=== PATIENT | male | born 1970 | race Caucasian/White ===

== ENCOUNTER 2017-10-18 19:18 | Observation (INO) | payer BC, OTHER ==
[~2017-10-18] VITALS: Ht 170.2 cm; Wt 96.7 kg
[~2017-10-18 19:18] MED LIST: ASPI81TA28 PO; ATOR10TA82 PO; CLC6 PO; CRG25 PO; DIPH-437 PO; FAMO20TA11 PO; FLUO10CA48 PO; FURO40TA3 PO; METF-383 PO; NITR0.4S UT; POTA10CA28 PO; PREN1TAB29 PO; SITA100T3 PO; TRAM-10 PO
[2017-10-18] MEDS ORDERED: ASPIRIN 81 MG CHEW PO STA (19:34)
[2017-10-18 19:52] LABS: BASO % 0.4 %; BASO ABS # 0.03 K/uL (0-0.2); EOS % 2.1 %; EOS ABS # 0.17 K/uL (0-0.5); HEMATOCRIT 45.4 % (42-52); HEMOGLOBIN 15.9 g/dL (14.0-18.0); IG# 0.01 K/uL (0.00-0.02); LYMPH % 23.6 %; LYMPH ABS # 1.92 K/uL (1.2-3.4); MEAN CELL VOLUME 83.8 fL (80-100); MEAN CORPUSCULAR HEMOGLOBIN 29.3 pg (25-34); MEAN PLATELET VOLUME 10.2 fL (7.4-10.4); MONO % 9.5 %; MONO ABS # 0.77 K/uL (0.11-0.59); NEUT % 64.3 %; NEUT ABS # 5.22 K/uL (1.4-6.5); PLATELET COUNT 248 K/uL (130-400); RED CELL DISTRIBUTION WIDTH SD 38.8 fL (36.4-46.3); WHITE BLOOD COUNT 8.12 K/uL (4.8-10.8)
[2017-10-18] MEDS ORDERED: ATOR-24 PO (20:12)
[2017-10-18] MEDS ORDERED: CARV25TA2 PO (20:14)
[2017-10-18] MEDS ORDERED: FLUO20CA35 PO (20:15)
[2017-10-18] MEDS ORDERED: INSU1.2I SC (20:23)
[2017-10-18 20:24] LABS: BLOOD UREA NITROGEN 14 mg/dl (7-18); CALCIUM 8.6 mg/dl (8.5-10.1); CARBON DIOXIDE 27 mmol/L (21-32); CREATININE 1.31 mg/dl (0.60-1.40); GLUCOSE 242 mg/dl (70-99); LIPASE 148 U/L (73-393); POTASSIUM 4.1 mmol/L (3.5-5.1); SODIUM 135 mmol/L (136-145)
[2017-10-18] MEDS ORDERED: LISI-789 PO (20:25)
[2017-10-18] MEDS ORDERED: ISOS30TA3 PO (20:25)
--- NOTE | 2017-10-18 20:31 | DIAGNOSTIC IMAGING REPORT ---
CHEST 2 VIEWS ROUTINE CLINICAL HISTORY: Chest pain. COMPARISON STUDY: Chest CT June 10, 2015. FINDINGS: Lung volumes are normal. There is no pneumothorax or pleural effusion. Pulmonary vascularity is normal. There is no consolidation to suggest pneumonia. There are median sternotomy wires and clips from bypass grafting. Opacity along the left heart border likely reflects epicardial fat pad or atelectasis. IMPRESSION: No acute cardiopulmonary findings. Electronically signed by: Kwasi Forrest M.D. 10/18/2017 8:29 PM Dictated Date/Time: 10/18/2017 8:28 PM
[2017-10-18 20:55] LABS: PTT PATIENT 23.4 SECONDS (21.0-31.0)
[2017-10-18 21:00] LABS: INFLUENZA B ANTIGEN Neg for Influ B (NEG)
--- NOTE | 2017-10-18 21:17 | EMERGENCY ROOM VISIT NOTE ---
History Report prepared by Kole: Jayla Chin Under the Supervision of: Dr. Bashir Bradley M.D. First contact with patient: 19:24 Chief Complaint: RESPIRATORY PROBLEMS Stated Complaint: TROUBLE BREATHING, PAIN L CHEST History of Present Illness The patient is a 47 year old male who presents to the Emergency Room with complaints of worsening respiratory problems starting 3 days ago. The patient states that he has had constant chest pain that he describes as a pressure with it. He reports that it is worse with a deep breath and feels similar to when he had pericarditis in the past. He states that the pain is worse when lying flat and better when leaning forward. The patient currently rates his pain as a 5/10 in severity pain is located substernally and over his left chest.. The patient complains of feeling heart palpitations earlier today and a cough with phlegm production. The patient denies recent travel, taking hormone pills, and hemoptysis. The patient notes a history of a quadruple bypass in March of 2015 and CHF. He notes he takes a baby Aspiring in the morning and states that he did take it this morning. Source of History: patient Onset: 3 days ago Position: other (global) Symptom Intensity: 5/10 Quality: pressure, other (respiratory problem) Timing: worsening Modifying Factors (Worsening): other (lying flat) Modifying Factors (Relieving): other (leaning forward) Associated Symptoms: + cough, + chest pain Note: The patient complains of heart palpitations. The patient denies hemoptysis. Review of Systems See HPI for pertinent positives and negatives. A total of ten systems were reviewed and were otherwise negative. Past Medical & Surgical Medical Problems: (1) CAD (coronary artery disease) (2) Diabetes (3) MS (myocardial infarction) (4) Quadruple heart bypass Family History Diabetes mellitus Heart disease Hypertension Lung disease Social History Smoking Status: Never Smoker Alcohol Use: none Drug Use: none Marital Status: Housing Status: lives with family Occupation Status: employed Current/Historical Medications Scheduled Aspirin (Aspirin Ec), 81 MG PO DAILY Atorvastatin (Lipitor), 40 MG PO DAILY Carvedilol (Coreg), 25 MG PO BID Famotidine (Pepcid), 20 MG PO BID Fluoxetine (Prozac), 10 MG PO DAILY Insulin Glargine (Toujeo Solostar), 75 UNITS SC HS Isosorbide Mononitrate Ext Rel (Imdur Ext Rel), 30 MG PO QAM Lisinopril (Zestril), 2.5 MG PO QPM Nitroglycerin (Nitrostat), 0.4 MG UT PRN Scheduled PRN Acetaminophen/Diphenhydramine (Tylenol Pm), 1 TAB PO HS PRN for Sleep Furosemide (Lasix), 40 MG PO 3XWK PRN for WATER RETENTION Potassium Chloride (Micro-K Ext Rel), 10 MEQ PO 3XWK PRN for PRN Tramadol (Ultram), 50-100 MG PO UD PRN for Pain Allergies Coded Allergies: Omeprazole (Verified Allergy, Intermediate, SOB, FACIAL REDNESS, 10/18/17) Lansoprazole (Unverified Allergy, Mild, 10/18/17) Cephalexin (Verified Adverse Reaction, Intermediate, SEVERE NAUSEA & VOMITING, 10/18/17) Physical Exam Vital Signs Date Time Temp Pulse Resp B/P (MAP) Pulse Ox O2 Delivery O2 Flow Rate FiO2 10/18/17 21:18 92 18 130/78 96 Room Air 10/18/17 20:23 87 10/18/17 19:51 94 Room Air 10/18/17 19:51 94 Room Air 10/18/17 19:22 37.0 94 18 113/71 96 Room Air Physical Exam Physical Exam GENERAL: He is oriented to person, place, and time. He appears well-developed and well-nourished. He does not appear distressed. HENT: Exam performed. Head: Normocephalic and atraumatic. Right Ear: External ear normal. No mastoid tenderness. Left Ear: External ear normal. No mastoid tenderness. Mouth/Throat: The oropharynx is clear and moist. No trismus in the jaw. No dental abscesses or uvula swelling. No oropharyngeal exudate or tonsillar abscesses. EYES: Conjunctivae and EOM are normal. Pupils are equal, round, and reactive to light. Right eye exhibits no discharge. Left eye exhibits no discharge. No scleral icterus. NECK: Normal range of motion. Neck supple. No JVD present. No spinous process tenderness present. No carotid bruit present. No rigidity. No tracheal deviation and normal range of motion present. No Brudzinski's sign and no Kernig 's sign noted. CV: Normal rate, regular rhythm, normal heart sounds and intact distal pulses. There is no peripheral edema. Palpable radial pulses bue. PULM/CHEST: Effort normal and breath sounds normal. No respiratory distress. No stridor. He has no wheezes. He has no rales. Chest Wall: He exhibits no tenderness. ABD: The abdomen is soft. Bowel sounds are normal. He has no distension. No mass is present. There is no tenderness. There is no rebound, no guarding, no Holley's sign and no tenderness at McBurney's point. Rovsig negative MUSC/SKEL: Normal range of motion. There is no peripheral edema, tenderness or deformity. Amputated left lower extremity. LYMPH: No cervical adenopathy. NEURO: He is alert and oriented to person, place, and time. He has normal strength. No cranial nerve deficit or sensory deficit. Coordination and gait normal. GCS eye subscore is 4. GCS verbal subscore is 5. GCS motor subscore is 6. Cerebellar tests wnl. SKIN: Skin is warm and dry. He is not diaphoretic. Scars over his anterior chest where the cabbage was performed that look well healed and clean. PSYCH: He has a normal mood and affect. His behavior is normal. Judgment and thought content normal. Medical Decision & Procedures ER Provider Diagnostic Interpretation: Radiology results as stated below per my review and radiologist interpretation: CHEST 2 VIEWS ROUTINE CLINICAL HISTORY: Chest pain. COMPARISON STUDY: Chest CT June 10, 2015. FINDINGS: Lung volumes are normal. There is no pneumothorax or pleural effusion. Pulmonary vascularity is normal. There is no consolidation to suggest pneumonia. There are median sternotomy wires and clips from bypass grafting. Opacity along the left heart border likely reflects epicardial fat pad or atelectasis. IMPRESSION: No acute cardiopulmonary findings. Electronically signed by: Kwasi Forrest M.D. 10/18/2017 8:29 PM Dictated Date/Time: 10/18/2017 8:28 PM Laboratory Results 10/18/17 19:40 Red Blood Count 5.42, Mean Corpuscular Volume 83.8, Mean Corpuscular Hemoglobin 29.3, Mean Corpuscular Hemoglobin Concent 35.0, Mean Platelet Volume 10.2, Neutrophils (%) (Auto) 64.3, Lymphocytes (%) (Auto) 23.6, Monocytes (%) (Auto) 9.5, Eosinophils (%) (Auto) 2.1, Basophils (%) (Auto) 0.4, Neutrophils # (Auto) 5.22, Lymphocytes # (Auto) 1.92, Monocytes # (Auto) 0.77, Eosinophils # (Auto) 0.17, Basophils # (Auto) 0.03 10/18/17 19:40 Test 10/18/17 19:40 10/18/17 20:33 White Blood Count 8.12 K/uL (4.8-10.8) Red Blood Count 5.42 M/uL (4.7-6.1) Hemoglobin 15.9 g/dL (14.0-18.0) Hematocrit 45.4 % (42-52) Mean Corpuscular Volume 83.8 fL (80-100) Mean Corpuscular Hemoglobin 29.3 pg (25-34) Mean Corpuscular Hemoglobin Concent 35.0 g/dl (32-36) Platelet Count 248 K/uL (130-400) Mean Platelet Volume 10.2 fL (7.4-10.4) Neutrophils (%) (Auto) 64.3 % Lymphocytes (%) (Auto) 23.6 % Monocytes (%) (Auto) 9.5 % Eosinophils (%) (Auto) 2.1 % Basophils (%) (Auto) 0.4 % Neutrophils # (Auto) 5.22 K/uL (1.4-6.5) Lymphocytes # (Auto) 1.92 K/uL (1.2-3.4) Monocytes # (Auto) 0.77 K/uL (0.11-0.59) Eosinophils # (Auto) 0.17 K/uL (0-0.5) Basophils # (Auto) 0.03 K/uL (0-0.2) RDW Standard Deviation 38.8 fL (36.4-46.3) RDW Coefficient of Variation 13.0 % (11.5-14.5) Immature Granulocyte % (Auto) 0.1 % Immature Granulocyte # (Auto) 0.01 K/uL (0.00-0.02) Anion Gap 7.0 mmol/L (3-11) Est Creatinine Clear Calc Drug Dose 77.3 ml/min Estimated GFR () 73.6 Estimated GFR (Non- 63.5 BUN/Creatinine Ratio 11.0 (10-20) Calcium Level 8.6 mg/dl (8.5-10.1) Troponin I < 0.015 ng/ml (0-0.045) Pro-B-Type Natriuretic Peptide 22 pg/ml (0-450) Lipase 148 U/L (73-393) Chemistry Specimen Hemolysis Prothrombin Time 10.7 SECONDS (9.0-12.0) Prothromb Time International Ratio 1.0 (0.9-1.1) Activated Partial Thromboplast Time 23.4 SECONDS (21.0-31.0) Partial Thromboplastin Ratio 0.9 Influenza Type A Antigen Neg for Influ A (NEG) Influenza Type B Antigen Neg for Influ B (NEG) Laboratory results reviewed by me Medications Administered Medications (Trade) Dose Ordered Sig/Jeremy Route Start Time Stop Time Status Last Admin Dose Admin Aspirin (Aspirin Chew) 324 mg NOW STAT PO 10/18/17 19:34 10/18/17 19:36 DC 10/18/17 19:54 324 MG ECG Per My Interpretation Indication: chest pain Rate (beats per minute): 91 Rhythm: sinus rhythm Findings: T-wave inversion (V1, V2, V3, V4, V5 ), other (GA, QRS, and QT-c within normal limits, no ST eleveations or depressions) Comparison ECG Date: May 2015, REPEAT Change: May 2015: When compared to previous, T wave inversions in V1-V3 are stable. New T wave inversions in V4 and V5. REPEAT: No change from EKG done today at 1932 besides rate of 89. ED Course 1930: The patient was evaluated in room C4. A complete history and physical exam was performed. EMR reviewed. The patient was admitted to [facility] in May 2015 for chest pain when it was discovered that he had pericardial effusion. It was thought that the patient had pericarditis status post CABG. Echocardiogram on June 11 showed small circumferential pericardial effusion. There was no evidence of cardiac tamponade. EF within normal limits. LV within normal limits. Grade 2 diastolic dysfunction. The patient has DMR stated that this CABG had been done on April 05, 2015 and diagnosed with pericarditis developed post op. He was treated with colchicine 0.6 mg O BID. EMR was further reviewed and the patient had a STEMI in 2010 that was complicated by V-fib arrest. 1931: EKG was performed. It showed sinus rhythm at a rate of 91. GA, QRS, and QT -c are within normal limits. T wave inversions were found in V1, V2, V3, V4, and V5. No ST elevations or depressions. When compared to previous in May 2015, T wave inversion in V1-V3 are stable. New T wave inversions in V4 and V5. 1933: Ordered Aspirin 324 mg PO. 1946: Repeat EKG was performed. No change from EKG done at 1931 besides the rate is now 89. 1951: Bedside Ultrasound was performed be ok. The patient shows pericardial effusion in the apical and parasternal long views. No evidence of cardiac tamponade. Subxiphoid view was inconclusive for pericardial effusion due to bowel gas. 2106: Chest x-ray and lab work within normal limits. Discussed the patient's case with Dr. Zenaida Bowen Hospitalist. The patient will be evaluated for further treatment and disposition. Medical Decision 1930: The patient was evaluated in room C4. A complete history and physical exam was performed. EMR reviewed. The patient was admitted to [facility] in May 2015 for chest pain when it was discovered that he had pericardial effusion. It was thought that the patient had pericarditis status post CABG. Echocardiogram on June 11 showed small circumferential pericardial effusion. There was no evidence of cardiac tamponade. EF within normal limits. LV within normal limits. Grade 2 diastolic dysfunction. The patient has DMR stated that this CABG had been done on April 05, 2015 and diagnosed with pericarditis developed post op. He was treated with colchicine 0.6 mg O BID. EMR was further reviewed and the patient had a STEMI in 2010 that was complicated by V-fib arrest. 1931: EKG was performed. It showed sinus rhythm at a rate of 91. GA, QRS, and QT -c are within normal limits. T wave inversions were found in V1, V2, V3, V4, and V5. No ST elevations or depressions. When compared to previous in May 2015, T wave inversion in V1-V3 are stable. New T wave inversions in V4 and V5. 1933: Ordered Aspirin 324 mg PO. 1946: Repeat EKG was performed. No change from EKG done at 193 besides the rate is now 89. 1951: Bedside Ultrasound was performed be ok. The patient shows pericardial effusion in the apical and parasternal long views. No evidence of cardiac tamponade. Subxiphoid view was inconclusive for pericardial effusion due to bowel gas. 2106: Chest x-ray and lab work within normal limits. Discussed the patient's case with Dr. Zenaida Goins. The patient will be evaluated for further treatment and disposition. Medication Reconcilliation Current Medication List: was personally reviewed by me Blood Pressure Screening Patient's blood pressure: Normal blood pressure Blood pressure disposition: Did not require urgent referral Will be further monitored by the hospitalist. Consults Time Called: 2102 Consulting Physician: Dr. Zenaida Goins Returned Call: 2106 Discussed the patient's case with Dr. Zenaida Goins. The patient will be evaluated for further treatment and disposition. Impression Primary Impression: Chest pain, unspecified Additional Impression: Pericardial effusion Scribe Attestation The scribe's documentation has been prepared under my direction and personally reviewed by me in its entirety. I confirm that the note above accurately reflects all work, treatment, procedures, and medical decision making performed by me. The chart was completed utilizing [employer] Speech voice recognition software. Grammatical errors, random word insertions, pronoun errors, and incomplete sentences are an occasional consequence of this system due to software limitations, ambient noise, and hardware issues. Any formal questions or concerns about the content, text, or information contained within the body of this dictation should be directly addressed to the physician for clarification. Departure Information Dispostion Being Evaluated By Hospitalist Referrals Larry Bartlett PA-C (PCP) Patient Instructions My [facility] Problem Qualifiers
[2017-10-18] MEDS ORDERED: ACETAMINOPHEN 325 MG TAB PO PRN (22:15)
[2017-10-18] MEDS ORDERED: POLYETHYLENE (MIRALAX) 17 GM PACK PO PRN (22:15)
[2017-10-18] MEDS ORDERED: ONDANSETRON INJ 2 MG/ML 2 ML VIAL IV PRN (22:15)
[2017-10-18] MEDS ORDERED: TRAMADOL HCL 50 MG TAB PO PRN (22:30)
[2017-10-18] MEDS ORDERED: DEXTROSE 50% 50 ML SYR IV PRN (22:30)
[2017-10-18] MEDS ORDERED: NITROGLYCERIN 0.4 MG SL PER TAB CHARGE UT SCH (22:30)
[2017-10-18] MEDS ORDERED: GLUCOSE 40% GEL 15 GM TUBE PO PRN (22:30)
[2017-10-18] MEDS ORDERED: GLUCOSE 10 TABS/TUBE PO PRN (22:30)
[2017-10-18] MEDS ORDERED: GLUCAGON FOR INJ 1 MG VIAL SQ PRN (22:30)
[2017-10-18 22:40] VITALS: BP 128/77; PULSE 86; TEMP 36.6; O2SAT 96; BMI 34.3
[2017-10-18] MEDS ORDERED: INSULIN GLARGINE SOLOSTAR 100 UNITS/ML 3 ML PEN SC SCH (23:00)
--- NOTE | 2017-10-18 23:01 | History and Physical ---
History & Physical Date & Time of Service: Oct 18, 2017 at 22:40 Chief Complaint: Chest Pain, Unspecified. Pericardial Effusion Primary Care Physician: Larry Bartlett PA-C History of Present Illness Source: patient, family, clinic records, hospital records Patient is a 47 yo male who presents to the hospital by encouragement from his , for complaints of left sided chest pain that he admits has been occurring intermittently for a week. The patient reports the pain has progressed today, and became more severe which is why he agreed to go to the hospital. He reports the chest pain is on the left side, below his left breast, and not painful to palpation. He reports worsening of the pain with deep breathing. He has also had a non-productive cough for the past week and was around his who tested positive for flu a week ago. The patient states he has been sleeping upright in a recliner the last few nights as he feels uncomfortable laying flat. He also states for the past 1 month he has had a decline in his energy, his exercise tolerance, and has been getting fatigued very easily with even minimal activity. He has also had worsening ESCUDERO over this time. He reports being sleepy all of the time. He also experienced a sensation today where he had palpitations and felt his heart was skipping a beat. He states he became worried today because his symptoms reminded him of the anginal symptoms he had in 2014 prior to undergoing CABG. Patient reports compliance with medications and denies any recent changes to medications. 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 Family History Diabetes mellitus Heart disease Hypertension Lung disease Social History Smoking Status: Never Smoker Smokeless Tobacco Use: Yes Alcohol Use: none Drug Use: none Marital Status: Housing status: lives with family Occupational Status: disabled Immunizations History of Influenza Vaccine: Unknown History of Tetanus Vaccine?: Unknown Multi-Drug Resistant Organisms History of MDRO: Yes Allergies Coded Allergies: Omeprazole (Verified Allergy, Intermediate, SOB, FACIAL REDNESS, 10/18/17) Lansoprazole (Unverified Allergy, Mild, 10/18/17) Cephalexin (Verified Adverse Reaction, Intermediate, SEVERE NAUSEA & VOMITING, 10/18/17) Home Medications Scheduled Aspirin (Aspirin Ec), 81 MG PO DAILY Atorvastatin (Lipitor), 40 MG PO DAILY Carvedilol (Coreg), 25 MG PO BID Famotidine (Pepcid), 20 MG PO BID Fluoxetine (Prozac), 10 MG PO DAILY Insulin Glargine (Toujeo Solostar), 75 UNITS SC HS Isosorbide Mononitrate Ext Rel (Imdur Ext Rel), 30 MG PO QAM Lisinopril (Zestril), 2.5 MG PO QPM Nitroglycerin (Nitrostat), 0.4 MG UT PRN Scheduled PRN Acetaminophen/Diphenhydramine (Tylenol Pm), 1 TAB PO HS PRN for Sleep Furosemide (Lasix), 40 MG PO 3XWK PRN for WATER RETENTION Potassium Chloride (Micro-K Ext Rel), 10 MEQ PO 3XWK PRN for PRN Tramadol (Ultram), 50-100 MG PO UD PRN for Pain Review of Systems Constitutional: + fatigue, No fever, No chills, No sweats, No weight loss Eyes: No worsening of vision, No eye pain, No diplopia ENT: No hearing loss, No nasal symptoms, No sore throat, No trouble swallowing Respiratory: + cough, + shortness of breath, + dyspnea on exertion, No sputum, No wheezing Cardiovascular: + chest pain, + orthopnea, + palpitations, No edema Abdomen: No pain, No nausea, No vomiting, No diarrhea, No constipation Musculoskeletal: No joint pain, No muscle pain, No swelling Genitourinary - Male: No hematuria, No dysuria, No urinary frequency, No urinary urgency Neurologic: No paralysis, No weakness, No numbness/tingling, No vertigo Psychiatric: No depression symptoms, No anxiety, No insomnia Endocrine: + fatigue, No excessive thirst, No excessive urination Hematologic / Lymphatic: No abnormal bleeding/bruising, No clotting problems, No night sweats Integumentary: No rash, No itch, No new/changing skin lesions Physical Exam Vital Signs Date Time Temp Pulse Resp B/P (MAP) Pulse Ox O2 Delivery O2 Flow Rate FiO2 10/18/17 22:23 79 20 128/78 95 10/18/17 21:18 92 18 130/78 96 Room Air 10/18/17 20:23 87 10/18/17 19:51 94 Room Air 10/18/17 19:51 94 Room Air 10/18/17 19:22 37.0 94 18 113/71 96 Room Air General Appearance: WD/WN, no apparent distress Head: normocephalic, atraumatic Eyes: PERRL, EOMI, sclerae normal (conjunctivae clear) ENT: hearing grossly normal Neck: supple, no adenopathy, no JVD, no carotid bruits, trachea midline Respiratory/Chest: chest non-tender, lungs clear, normal breath sounds, no respiratory distress, no accessory muscle use Cardiovascular: regular rate, rhythm, no edema, no gallop, no JVD, no murmur Abdomen/GI: normal bowel sounds, non tender, soft, no organomegaly (no hepatosplenomegaly) Back: normal inspection Extremities/Musculoskelatal: no calf tenderness, no pedal edema, + pertinent finding (left BKA) Neurologic/Psych: no motor/sensory deficits, alert, normal mood/affect, oriented x 3 Skin: normal color, warm/dry, no rash Diagnostics Laboratory Results Results Past 24 Hours Test 10/18/17 19:40 10/18/17 20:33 10/18/17 22:16 10/18/17 22:18 Range/Units White Blood Count 8.12 4.8-10.8 K/uL Red Blood Count 5.42 4.7-6.1 M/uL Hemoglobin 15.9 14.0-18.0 g/dL Hematocrit 45.4 42-52 % Mean Corpuscular Volume 83.8 80-100 fL Mean Corpuscular Hemoglobin 29.3 25-34 pg Mean Corpuscular Hemoglobin Concent 35.0 32-36 g/dl Platelet Count 248 130-400 K/uL Mean Platelet Volume 10.2 7.4-10.4 fL Neutrophils (%) (Auto) 64.3 % Lymphocytes (%) (Auto) 23.6 % Monocytes (%) (Auto) 9.5 % Eosinophils (%) (Auto) 2.1 % Basophils (%) (Auto) 0.4 % Neutrophils # (Auto) 5.22 1.4-6.5 K/uL Lymphocytes # (Auto) 1.92 1.2-3.4 K/uL Monocytes # (Auto) 0.77 0.11-0.59 K/uL Eosinophils # (Auto) 0.17 0-0.5 K/uL Basophils # (Auto) 0.03 0-0.2 K/uL RDW Standard Deviation 38.8 36.4-46.3 fL RDW Coefficient of Variation 13.0 11.5-14.5 % Immature Granulocyte % (Auto) 0.1 % Immature Granulocyte # (Auto) 0.01 0.00-0.02 K/uL Sodium Level 135 136-145 mmol/L Potassium Level 4.1 3.5-5.1 mmol/L Chloride Level 101 98-107 mmol/L Carbon Dioxide Level 27 21-32 mmol/L Anion Gap 7.0 3-11 mmol/L Blood Urea Nitrogen 14 7-18 mg/dl Creatinine 1.31 0.60-1.40 mg/dl Est Creatinine Clear Calc Drug Dose 77.3 ml/min Estimated GFR () 73.6 Estimated GFR (Non- 63.5 BUN/Creatinine Ratio 11.0 10-20 Random Glucose 242 70-99 mg/dl Calcium Level 8.6 8.5-10.1 mg/dl Troponin I < 0.015 0-0.045 ng/ml Pro-B-Type Natriuretic Peptide 22 0-450 pg/ml Lipase 148 73-393 U/L Chemistry Specimen Hemolysis Prothrombin Time 10.7 9.0-12.0 SECONDS Prothromb Time International Ratio 1.0 0.9-1.1 Activated Partial Thromboplast Time 23.4 21.0-31.0 SECONDS Partial Thromboplastin Ratio 0.9 Influenza Type A Antigen Neg for Influ A NEG Influenza Type B Antigen Neg for Influ B NEG Impression Assessment and Plan CHEST PAIN: -appears more pleuritic by description, however patient has significant CAD history and will be admitted to tele for further workup -first troponin negative, repeat x2 -TTE -Cardiology consulted -D-dimer is less than 500, making PE less likely -EKG: compared to prior, there are t wave inversions now more pronounced in V4 and V5, compared to 2 years ago when only in V1-V3 -ESR and CRP elevated -did have a previous pericarditis following his CABG in 2014 which resolved following treatment -influenza negative -CXR negative -ER attending performed bedside US and believed there was pericardial effusion without tamponade; this was discussed with Cardiology and the patient will undergo a formal TTE in the AM, will hold off on starting NSAID + colchicine until diagnosis is made -previous TTE from 2016 done as an outpatient showed EF 52%, trivial anterior loculated pericardial effusion CAD: -prior history of anterior TX s/p stent in 2009, and a CABG x4 in 2014 -last TTE was in 2015, EF 52% -repeat TTE -continue ASA, Statin, Coreg, and Imdur DM TYPE II: -check HbA1c -on Basal insulin, added correction scale as well -BSG AC and HS HTN: -stable -continue home meds HYPERLIPIDEMIA: -continue statin DEPRESSION: -continue fluoxetine VTE Prophylaxis VTE Risk Assessment Done? Y/N: Yes Risk Level: Moderate
[2017-10-18 23:53] VITALS: BP 122/81; PULSE 81; TEMP 36.3; O2SAT 96
[2017-10-19 00:10] LABS: INFLUENZA A PCR Neg for Influ A (NEG); INFLUENZA B PCR Neg for Influ B (NEG)
[2017-10-19] MEDS ORDERED: IV FLUIDS COMPLETED PRN (00:15)
[2017-10-19 03:48] VITALS: BP 124/80; PULSE 82; TEMP 37; O2SAT 96
[2017-10-19 04:42] LABS: CHOLESTEROL 103 mg/dl (0-200); LDL CHOLESTEROL CALCULATED 52 mg/dl
[2017-10-19 06:09] LABS: HEMATOCRIT 43.7 % (42-52); HEMOGLOBIN 15.2 g/dL (14.0-18.0); MEAN CELL VOLUME 84.5 fL (80-100); MEAN CORPUSCULAR HEMOGLOBIN 29.4 pg (25-34); MEAN CORPUSCULAR HGB CONC 34.8 g/dl (32-36); MEAN PLATELET VOLUME 9.9 fL (7.4-10.4); PLATELET COUNT 210 K/uL (130-400); RED CELL DISTRIBUTION WIDTH CV 13.1 % (11.5-14.5); WHITE BLOOD COUNT 7.51 K/uL (4.8-10.8)
[2017-10-19 06:43] LABS: CALCIUM 8.8 mg/dl (8.5-10.1); POTASSIUM 3.8 mmol/L (3.5-5.1)
[2017-10-19] MEDS: INSULIN ASPART 100 UNITS/ML 3 ML PEN SC SCH ×4 (07:00→21:00)
[2017-10-19 07:21] LABS: HEMOGLOBIN A1C 8.9 % (4.5-5.6)
[2017-10-19 07:57] VITALS: BP 144/95; PULSE 74; TEMP 37.1; O2SAT 96
[2017-10-19] MEDS: ASPIRIN 81 MG ECTAB PO SCH (09:02)
[2017-10-19] MEDS: CARVEDILOL 25 MG TAB PO SCH ×2 (09:02→21:16)
[2017-10-19] MEDS: ATORVASTATIN 20 MG TAB PO SCH (09:02)
[2017-10-19] MEDS: FLUOXETINE HCL 20 MG CAP PO SCH (09:03)
[2017-10-19] MEDS: FAMOTIDINE 20 MG TAB PO SCH ×2 (09:04→21:16)
[2017-10-19] MEDS: ISOSORBIDE MONONITRATE 30 MG TABCR PO SCH (09:05)
[2017-10-19] MEDS: ENOXAPARIN 40 MG/0.4 ML SYR SC SCH (09:06)
--- NOTE | 2017-10-19 09:11 | ECHOCARDIOGRAM REPORT ---
*NOTICE TO RECEIVING [employer] [facility] This information is strictly Confidential and protected under [place] law. [place] law prohibits you from making any further disclosure of this information unless further disclosure is expressly permitted by the written consent of the person to whom it pertains or is authorized by law. A general authorization for the release of medical or other information is not sufficient for this purpose. Hospital accepts no responsibility if the information is made available to any other person, INCLUDING THE PATIENT. Interpretation Summary * Name: KRISTEL SHRESTHA Study Date: 10/19/2017 06:35 AM BP: 124/80 mmHg * Patient Location: C.2E\S\E211\S\1 HR: 69 * : 1970 (M/d/yyyy) Gender: Male Height: 67 in * Age: 47 yrs Ethnicity: [place] Weight: 223 lb * Ordering Physician: Mercedes Estevez * Referring Physician: Self, Referred * Performed By: Kathryn Chauhan RDCS * * Reason For Study: PERICARDITIS * BSA: 2.1 m2 * -- Conclusions -- * Normal LV chamber size with moderate concentric LVH. * Normal LV systolic function with abnormal septal wall motion consistent with postoperative state, otherwise, normal. EF 55-60%. * Grade II diastolic dysfunction. * No significant valvular pathology. Procedure Details * A contrast injection of Definity was performed to improve assessment of LV function. * Contrast was injected into an intravenous site in the left arm. * One vial of Definity ultrasound contrast was diluted in normal saline to a total volume of 10 ml. A total of '1' ml of solution was administered during imaging. * Lot # [id number] of Definity utilized for procedure. * Expiration date 1 OCT 12. Left Ventricle * The left ventricle is normal in size. * There is moderate concentric left ventricular hypertrophy. * Ejection Fraction = 55-60%. * Left ventricular systolic function is normal. * Septal motion is consistent with post-operative state. Right Ventricle * The right ventricular cavity size is normal (basal dimension <4.2 cm in right ventricular apical 4-chamber view). * The right ventricular systolic function is normal as assessed by tricuspid annular plane systolic excursion (TAPSE) (normal >1.5 cm). Atria * The left atrial size is normal. * Right atrial size is normal. * No ASD detected; PFO is not assessed. Mitral Valve * The mitral valve is normal in structure and function. Tricuspid Valve * The tricuspid valve is normal in structure and function. Aortic Valve * The aortic valve is normal in structure and function. Pulmonic Valve * The pulmonary valve is not well seen, but the Doppler examination is normal without significant regurgitation or stenosis. Great Vessels * The aortic root is normal size. Pericardium/Pleural * There is no pericardial effusion. Left Ventricular Diastolic Function * Diastolic dysfunction, Grade II (pseudonormalization pattern). MMode 2D Measurements and Calculations IVSd 1.7 cm IVSs 2.0 cm LVIDd 3.9 cm LVIDs 2.6 cm LVPWd 1.5 cm LVPWs 2.1 cm IVS/LVPW 1.1 FS 33.1 % EDV(Teich) 67.4 ml ESV(Teich) 25.4 ml EF(Teich) 62.3 % EDV(cubed) 61.0 ml ESV(cubed) 18.3 ml EF(cubed) 70.0 % % IVS thick 19.7 % % LVPW thick 39.7 % LV mass(C)d 250.0 grams LV mass(C)dI 118.1 grams/m\S\2 LV mass(C)s 240.2 grams LV mass(C)sI 113.4 grams/m\S\2 SV(Teich) 42.0 ml SI(Teich) 19.8 ml/m\S\2 SV(cubed) 42.7 ml SI(cubed) 20.2 ml/m\S\2 Ao root diam 3.2 cm Ao root area 8.3 cm\S\2 LA dimension 3.4 cm LA/Ao 1.0 LVAd ap4 23.6 cm\S\2 LVLd ap4 7.3 cm EDV(MOD-sp4) 61.1 ml EDV(sp4-el) 64.4 ml LVAs ap4 14.1 cm\S\2 LVLs ap4 6.7 cm ESV(MOD-sp4) 25.3 ml ESV(sp4-el) 25.3 ml EF(MOD-sp4) 58.6 % EF(sp4-el) 60.7 % LVAd ap2 26.7 cm\S\2 LVLd ap2 8.2 cm EDV(MOD-sp2) 70.2 ml EDV(sp2-el) 74.2 ml LVAs ap2 13.8 cm\S\2 LVLs ap2 7.1 cm ESV(MOD-sp2) 24.2 ml ESV(sp2-el) 23.0 ml EF(MOD-sp2) 65.6 % EF(sp2-el) 69.0 % LVLd %diff 10.4 % EDV(MOD-bp) 69.3 ml LVLs %diff 5.4 % ESV(MOD-bp) 24.5 ml EF(MOD-bp) 64.7 % SV(MOD-sp4) 35.8 ml SI(MOD-sp4) 16.9 ml/m\S\2 SV(MOD-sp2) 46.0 ml SI(MOD-sp2) 21.7 ml/m\S\2 SV(MOD-bp) 44.8 ml SI(MOD-bp) 21.2 ml/m\S\2 SV(sp4-el) 39.1 ml SI(sp4-el) 18.5 ml/m\S\2 SV(sp2-el) 51.2 ml SI(sp2-el) 24.2 ml/m\S\2 Doppler Measurements and Calculations MV E max carly 81.9 cm/sec MV A max carly 58.1 cm/sec MV E/A 1.4 MV dec time 0.23 sec Ao V2 max 92.1 cm/sec Ao max PG 3.4 mmHg Ao max PG (full) 0.06 mmHg LV V1 max PG 3.3 mmHg LV V1 max 91.3 cm/sec TR max carly 175.6 cm/sec
--- NOTE | 2017-10-19 11:36 | Progress Note ---
Internal Med Progress Note Date of Service: Oct 19, 2017. Provider Documentation: SUBJECTIVE: The patient was seen and examined Has been complaining of Left lower anterior chest pain with inspiration for the last 1 week Still has the pain No other symptoms associated with it OBJECTIVE: Vital Signs-as noted below Exam: General-No distress Eyes-normal ENT-normal Neck-supple Lungs-Clear to ausucltate bilaterally Heart-Regular.no murmur appreciated Abdomen-Benign,no masses,bowel sound present Extremities-No edema Neuro-AAOx3 Lab data as noted below. ASSESSMENT & PLAN: CHEST PAIN:LIKELY SECONDARY TO PLEURITIS -appears more pleuritic by description, however patient has significant CAD history and will be admitted to [facility] for further workup -negative Troponin -Cardiology consulted-appreciate input -D-dimer is less than 500, making PE less likely -EKG: Changes as noticed -ESR and CRP -nonsignificant -influenza negative -CXR negative -previous TTE from 2016 done as an outpatient showed EF 52%, trivial anterior loculated pericardial effusion -ECHO::Normal LV chamber size with moderate concentric LVH. * Normal LV systolic function with abnormal septal wall motion consistent with postoperative state, otherwise, normal. EF 55-60%. * Grade II diastolic dysfunction. * No significant valvular pathology. Can be discharged today CAD: -prior history of anterior MS s/p stent in 2009, and a CABG x4 in 2014 -last TTE was in 2016, EF 52% -repeat TTE::Normal LV chamber size with moderate concentric LVH. * Normal LV systolic function with abnormal septal wall motion consistent with postoperative state, otherwise, normal. EF 55-60%. * Grade II diastolic dysfunction. * No significant valvular pathology. -continue ASA, Statin, Coreg, and Imdur -cardiology cleared for discharge DM TYPE II: -check HbA1c -on Basal insulin, added correction scale as well -BSG AC and HS HTN: -stable -continue home meds HYPERLIPIDEMIA: -continue statin DEPRESSION: -continue fluoxetine DISPOSITION Discharge home this PM Vital Signs: Date Time Temp Pulse Resp B/P (MAP) Pulse Ox O2 Delivery O2 Flow Rate FiO2 10/19/17 08:00 Room Air 10/19/17 07:57 37.1 74 16 144/95 (111) 96 Room Air 10/19/17 04:00 Room Air 10/19/17 03:48 37.0 82 22 124/80 (95) 96 Room Air 10/19/17 00:00 Room Air 10/18/17 23:53 36.3 81 18 122/81 (95) 96 Room Air 10/18/17 22:40 36.6 86 20 128/77 96 Room Air 10/18/17 22:23 79 20 128/78 95 10/18/17 21:18 92 18 130/78 96 Room Air 10/18/17 20:23 87 10/18/17 19:51 94 Room Air 10/18/17 19:51 94 Room Air 10/18/17 19:22 37.0 94 18 113/71 96 Room Air Lab Results: Results Past 24 Hours Test 10/18/17 19:40 10/18/17 20:33 10/18/17 22:47 10/18/17 23:07 Range/Units White Blood Count 8.12 4.8-10.8 K/uL Red Blood Count 5.42 4.7-6.1 M/uL Hemoglobin 15.9 14.0-18.0 g/dL Hematocrit 45.4 42-52 % Mean Corpuscular Volume 83.8 80-100 fL Mean Corpuscular Hemoglobin 29.3 25-34 pg Mean Corpuscular Hemoglobin Concent 35.0 32-36 g/dl Platelet Count 248 130-400 K/uL Mean Platelet Volume 10.2 7.4-10.4 fL Neutrophils (%) (Auto) 64.3 % Lymphocytes (%) (Auto) 23.6 % Monocytes (%) (Auto) 9.5 % Eosinophils (%) (Auto) 2.1 % Basophils (%) (Auto) 0.4 % Neutrophils # (Auto) 5.22 1.4-6.5 K/uL Lymphocytes # (Auto) 1.92 1.2-3.4 K/uL Monocytes # (Auto) 0.77 0.11-0.59 K/uL Eosinophils # (Auto) 0.17 0-0.5 K/uL Basophils # (Auto) 0.03 0-0.2 K/uL RDW Standard Deviation 38.8 36.4-46.3 fL RDW Coefficient of Variation 13.0 11.5-14.5 % Immature Granulocyte % (Auto) 0.1 % Immature Granulocyte # (Auto) 0.01 0.00-0.02 K/uL Sodium Level 135 136-145 mmol/L Potassium Level 4.1 3.5-5.1 mmol/L Chloride Level 101 98-107 mmol/L Carbon Dioxide Level 27 21-32 mmol/L Anion Gap 7.0 3-11 mmol/L Blood Urea Nitrogen 14 7-18 mg/dl Creatinine 1.31 0.60-1.40 mg/dl Est Creatinine Clear Calc Drug Dose 77.3 ml/min Estimated GFR () 73.6 Estimated GFR (Non- 63.5 BUN/Creatinine Ratio 11.0 10-20 Random Glucose 242 70-99 mg/dl Calcium Level 8.6 8.5-10.1 mg/dl Troponin I < 0.015 0-0.045 ng/ml Pro-B-Type Natriuretic Peptide 22 0-450 pg/ml Lipase 148 73-393 U/L Chemistry Specimen Hemolysis Prothrombin Time 10.7 9.0-12.0 SECONDS Prothromb Time International Ratio 1.0 0.9-1.1 Activated Partial Thromboplast Time 23.4 21.0-31.0 SECONDS Partial Thromboplastin Ratio 0.9 Influenza Type A (RT-PCR) Neg for Influ A NEG Influenza Type A Antigen Neg for Influ A NEG Influenza Type B Antigen Neg for Influ B NEG Influenza Type B (RT-PCR) Neg for Influ B NEG Erythrocyte Sedimentation Rate 15 0-14 mm/hr D-Dimer 470 0-500 ug/L FEU C-Reactive Protein 0.64 0-0.29 mg/dl Bedside Glucose 217 70-99 mg/dl Test 10/19/17 04:09 10/19/17 05:52 10/19/17 06:30 10/19/17 10:03 Range/Units Estimated Average Glucose 209 mg/dl Hemoglobin A1c 8.9 4.5-5.6 % Troponin I < 0.015 < 0.015 0-0.045 ng/ml Triglycerides Level 86 0-150 mg/dl Cholesterol Level 103 0-200 mg/dl HDL Cholesterol 34 mg/dl LDL Cholesterol, Calculated 52 mg/dl VLDL Cholesterol, Calculated 17 mg/dl Cholesterol/HDL Ratio 3.0 White Blood Count 7.51 4.8-10.8 K/uL Red Blood Count 5.17 4.7-6.1 M/uL Hemoglobin 15.2 14.0-18.0 g/dL Hematocrit 43.7 42-52 % Mean Corpuscular Volume 84.5 80-100 fL Mean Corpuscular Hemoglobin 29.4 25-34 pg Mean Corpuscular Hemoglobin Concent 34.8 32-36 g/dl RDW Standard Deviation 40.0 36.4-46.3 fL RDW Coefficient of Variation 13.1 11.5-14.5 % Platelet Count 210 130-400 K/uL Mean Platelet Volume 9.9 7.4-10.4 fL Sodium Level 138 136-145 mmol/L Potassium Level 3.8 3.5-5.1 mmol/L Chloride Level 104 98-107 mmol/L Carbon Dioxide Level 25 21-32 mmol/L Anion Gap 9.0 3-11 mmol/L Blood Urea Nitrogen 17 7-18 mg/dl Creatinine 1.00 0.60-1.40 mg/dl Est Creatinine Clear Calc Drug Dose 83.6 ml/min Estimated GFR () 102.0 Estimated GFR (Non- 88.0 BUN/Creatinine Ratio 16.9 10-20 Random Glucose 75 70-99 mg/dl Calcium Level 8.8 8.5-10.1 mg/dl Bedside Glucose 85 70-99 mg/dl
[2017-10-19 12:04] VITALS: BP 117/73; PULSE 90; TEMP 36.8; O2SAT 95
[2017-10-19 15:05] VITALS: BP 108/70; PULSE 85; TEMP 37.1; O2SAT 95
--- NOTE | 2017-10-19 15:26 | CARDIOLOGY CONSULTATION ---
DATE OF CONSULTATION: 10/19/2017 CONSULTATION REQUESTED BY: Dr. Estevez. REASON FOR CONSULTATION: Chest pain. HISTORY OF PRESENT ILLNESS: Mr. Lockhart is a very pleasant 47-year-old gentleman who normally follows with Dr. Dlay and Grady Ruiz of our cardiology practice. He presented to [facility] [address] on 10/18/2017 with a complaint of chest pain. The patient does state that he has been having it for over a week now. About 2 weeks ago, he was having a lot of sinus congestion and significant coughing in the morning and after that he started noticing chest pain along the bottom of his left rib cage with deep inhalation. He states that it only occurred when he took deep breaths and did not occur with exertion. He described it as sharp jabbing kind of pain, did resolve with exhalation. He states that it did seem to worsen over the preceding weeks and days and finally on the , his who is a nurse made him come in the Emergency Room to be evaluated given his extensive cardiac history. In the Emergency Department, his initial workup was unremarkable including his baseline abnormal EKG and he was admitted to telemetry. Currently, he states he is feeling fine and again states that the pain only occurs when he takes a deep breath. He denies any associated shortness of breath, diaphoresis, nausea, palpitations, lightheadedness, dizziness, or syncope. He does not remember experiencing any trauma to the chest either. PAST SURGICAL HISTORY: 1. Coronary artery bypass grafting surgery in 2014 with a BULLOCK to the LAD, vein graft to the RCA, vein graft to the diagonal and JEFFRY to the obtuse marginal. 2. History of PCI to the LAD. MEDICAL ILLNESSES: 1. Coronary artery disease including a VFib arrest in 2009. 2. History of postoperative pericarditis. 3. Dyslipidemia 4. Hypertension. 5. Diabetes. FAMILY HISTORY: Noncontributory. SOCIAL HISTORY: The patient denies any cigarette use. Uses smokeless tobacco. Denies any alcohol or recreational drug use. He is and lives at home with his . REVIEW OF SYSTEMS: As per HPI, all other review of systems reviewed and negative at this time. ALLERGIES: 1. CEPHALEXIN. 2. LANSOPRAZOLE. 3. OMEPRAZOLE. MEDICATIONS AN OUTPATIENT: 1. Aspirin 81 mg daily. 2. Atorvastatin 40 mg daily. 3. Coreg 25 mg b.i.d. 4. Lasix as needed. 5. Imdur 30 mg daily. 6. Lisinopril 2.5 mg daily. 7. Pepcid b.i.d. 8. Potassium chloride with Lasix. 9. Insulin as directed. 10. Prozac daily. PHYSICAL EXAMINATION: VITALS: Temperature 37.1, pulse 74, respiratory rate 12, blood pressure 144/95. GENERAL: Awake, alert, oriented x3 in no acute distress. HEENT: Normocephalic, atraumatic. Pupils equal, round, and reactive to light and accommodation. Extraocular muscles intact. Anicteric sclerae. Moist mucous membranes. NECK: No JVD, no bruit. CARDIOVASCULAR: Regular. Positive S4. Normal S1 and S2. No S3. No murmurs or rubs. PULMONARY: Clear to auscultation bilaterally. No rales, rhonchi, or wheezing. ABDOMEN: Bowel sounds x4, soft. No rebound, guarding, or tenderness. No organomegaly. EXTREMITIES: No clubbing, cyanosis or edema. +2 pedal pulses bilaterally. SKIN: Warm and dry. TEST RESULTS: Troponin negative x3. A 2D echocardiogram was read as normal LV chamber size with moderate concentric LVH, normal LV systolic function with abnormal septal wall motion consistent with postoperative state, otherwise normal. EF 55%-60%. Grade 2 diastolic dysfunction, no significant valvular pathology. IMPRESSION: 1. Costochondritis. 2. Extensive cardiac history status post coronary artery bypass graft and percutaneous coronary intervention. RECOMMENDATIONS: It is my pleasure to see Mr. Lockhart in consultation today. Given the fact that his pain is pleuritic in nature and also somewhat reproducible with palpation, I do believe he is suffering from costochondritis and given the fact there are no objective findings of ischemia, no further cardiac testing or intervention is necessary at this time. He continues NSAIDs on a p.r.n. basis as well as heat or cold compresses for symptom relief. My office will call him to follow up with Grady Ruiz as an outpatient in 2 weeks and consideration for stress testing to be made at that time. Otherwise, no medication changes will be made today. GEOFF
--- NOTE | 2017-10-19 15:27 | Discharge Instructions ---
Discharge Instructions Date of Service Oct 19, 2017. Admission Reason for Admission: Chest Pain, Unspecified. Pericardial Effusion Discharge Discharge Diagnosis / Problem: Pleurisy,Chest pain-NO ACS,CAD Discharge Goals Goal(s): Prevent Disease Progression Activity Recommendations Activity Limitations: resume your previous activity . Instructions / Follow-Up Instructions / Follow-Up Please make an appointment with your PCP in 1 week. Keep cardiology appointment Current Hospital Diet Patient's current hospital diet: AHA Diet (Heart Healthy), Diabetes Type 2 Diet Discharge Diet Recommended Diet: AHA Diet (Heart Healthy), Diabetes Type 2 Diet Pending Studies Studies pending at discharge: no Laboratory Results Hemoglobin A1c Test 10/19/17 04:09 Range/Units Estimated Average Glucose 209 mg/dl Hemoglobin A1c 8.9 H 4.5-5.6 % Lipid Panel Test 10/19/17 04:09 Range/Units Triglycerides Level 86 0-150 mg/dl Cholesterol Level 103 0-200 mg/dl HDL Cholesterol 34 mg/dl Cholesterol/HDL Ratio 3.0 LDL Cholesterol, Calculated 52 mg/dl Medical Emergencies . Who to Call and When: Medical Emergencies: If at any time you feel your situation is an emergency, please call 911 immediately. . Non-Emergent Contact Non-Emergency issues call your: Primary Care Provider . Past History Medical & Surgical History: (1) Pleurisy (2) Chest pain, unspecified (3) Diabetes (4) CAD (coronary artery disease) (5) [place] (myocardial infarction) (6) Quadruple heart bypass (7) Congestive heart failure . "Provider Documentation" section prepared by Armand Randolph. . VTE Core Measure Inpt VTE Proph given/why not?: Enoxaparin (Lovenox)SQ
[2017-10-19 15:46] VITALS: Ht 170.2 cm; Wt 96.7 kg
--- NOTE | 2017-10-19 15:49 | Progress Note ---
Progress Note Date of Service Oct 19, 2017. Progress Note Pt getting ready for discharge. Had an asymptomatic run of wide complex rhythm on tele. Notified by NSG, strip reviewed: appears to be an ectopic atrial rhythm with a RBBB. No symptoms. Will monitor on tele overnight and attempt to capture rhythm on 12 lead.
[2017-10-19 16:38] LABS: CALCIUM 8.2 mg/dl (8.5-10.1); CREATININE 1.16 mg/dl (0.60-1.40); POTASSIUM 3.8 mmol/L (3.5-5.1)
[2017-10-19 20:11] VITALS: BP 130/79; PULSE 86; TEMP 37.2; O2SAT 96
[2017-10-19] MEDS ORDERED: LISINOPRIL 2.5 MG TAB PO SCH (21:00)
[2017-10-19] MEDS ORDERED: INSULIN GLARGINE SOLOSTAR 100 UNITS/ML 3 ML PEN SC SCH (21:00)
[2017-10-19 23:50] VITALS: BP 115/65; PULSE 81; TEMP 36.9; O2SAT 95
[2017-10-20 05:41] VITALS: BP 123/74; PULSE 86; TEMP 37; O2SAT 96
[2017-10-20 08:00] VITALS: BP 126/86; PULSE 92; TEMP 37.2; O2SAT 96
[2017-10-20] MEDS: CARVEDILOL 25 MG TAB PO SCH (08:03)
[2017-10-20] MEDS: ASPIRIN 81 MG ECTAB PO SCH (08:03)
[2017-10-20] MEDS: FAMOTIDINE 20 MG TAB PO SCH (08:04)
[2017-10-20] MEDS: FLUOXETINE HCL 20 MG CAP PO SCH (08:04)
[2017-10-20] MEDS: ENOXAPARIN 40 MG/0.4 ML SYR SC SCH (08:04)
[2017-10-20] MEDS: ATORVASTATIN 20 MG TAB PO SCH (08:04)
[2017-10-20] MEDS: ISOSORBIDE MONONITRATE 30 MG TABCR PO SCH (08:04)
[2017-10-20] MEDS: INSULIN ASPART 100 UNITS/ML 3 ML PEN SC SCH ×2 (08:19→11:00)
--- NOTE | 2017-10-20 10:17 | Progress Note ---
Internal Med Progress Note Date of Service: Oct 20, 2017. Provider Documentation: SUBJECTIVE: The patient was seen and examined Has been complaining of Left lower anterior chest pain with inspiration for the last 1 week Still has the pain No other symptoms associated with it Has had a brief episode of benign RBBB patter yesterday No more episodes overnight Denies any symptoms OBJECTIVE: Vital Signs-as noted below Exam: General-No distress at rest Eyes-normal ENT-normal Neck-supple Lungs-Clear to ausucltate bilaterally Heart-Regular.no murmur appreciated Abdomen-Benign,no masses,bowel sound present Extremities-No edema Neuro-AAOx3 Lab data as noted below. ASSESSMENT & PLAN: CHEST PAIN:LIKELY SECONDARY TO PLEURISY -appears more pleuritic by description, however patient has significant CAD history and will be admitted to [facility] for further workup -negative Troponin -Cardiology consulted-appreciate input -D-dimer is less than 500, making PE less likely -EKG: Changes as noticed -ESR and CRP -nonsignificant -influenza negative -CXR negative -previous TTE from 2016 done as an outpatient showed EF 52%, trivial anterior loculated pericardial effusion -ECHO::Normal LV chamber size with moderate concentric LVH. * Normal LV systolic function with abnormal septal wall motion consistent with postoperative state, otherwise, normal. EF 55-60%. * Grade II diastolic dysfunction. * No significant valvular pathology. Still has minimal pleuritic pain No other symptoms CAD: -prior history of anterior [place] s/p stent in 2009, and a CABG x4 in 2014 -last TTE was in 2016, EF 52% -repeat TTE::Normal LV chamber size with moderate concentric LVH. * Normal LV systolic function with abnormal septal wall motion consistent with postoperative state, otherwise, normal. EF 55-60%. * Grade II diastolic dysfunction. * No significant valvular pathology. -continue ASA, Statin, Coreg, and Imdur -cardiology cleared for discharge -a very brief episode of transient RBBB last evening -No more episodes -Has OP cardiology appointment -D/c Home today DM TYPE II: -check HbA1c -on Basal insulin, added correction scale as well -BSG AC and HS HTN: -stable -continue home meds HYPERLIPIDEMIA: -continue statin DEPRESSION: -continue fluoxetine DISPOSITION Discharge home today Vital Signs: Date Time Temp Pulse Resp B/P (MAP) Pulse Ox O2 Delivery O2 Flow Rate FiO2 10/20/17 08:01 Room Air 2/27/18 08:00 37.2 92 16 126/86 (99) 96 Room Air 10/20/17 05:41 37.0 86 18 123/74 (90) 96 10/20/17 04:00 Room Air 10/19/17 23:59 Room Air 10/19/17 23:50 36.9 81 18 115/65 (82) 95 Room Air 10/19/17 20:11 37.2 86 20 130/79 (96) 96 Room Air 10/19/17 20:00 Room Air 10/19/17 16:00 Room Air 10/19/17 15:05 37.1 85 20 108/70 (83) 95 Room Air 10/19/17 12:04 36.8 90 20 117/73 (88) 95 Room Air 10/19/17 12:00 Room Air Lab Results: Results Past 24 Hours Test 10/19/17 11:46 10/19/17 16:01 10/19/17 16:13 10/19/17 20:33 Range/Units Bedside Glucose 110 162 116 70-99 mg/dl Sodium Level 136 136-145 mmol/L Potassium Level 3.8 3.5-5.1 mmol/L Chloride Level 102 98-107 mmol/L Carbon Dioxide Level 28 21-32 mmol/L Anion Gap 6.0 3-11 mmol/L Blood Urea Nitrogen 18 7-18 mg/dl Creatinine 1.16 0.60-1.40 mg/dl Est Creatinine Clear Calc Drug Dose 72.0 ml/min Estimated GFR () 85.2 Estimated GFR (Non- 73.5 BUN/Creatinine Ratio 15.3 10-20 Random Glucose 169 70-99 mg/dl Calcium Level 8.2 8.5-10.1 mg/dl Magnesium Level 2.0 1.8-2.4 mg/dl Test 10/20/17 06:40 Range/Units Bedside Glucose 109 70-99 mg/dl
[2017-10-20 10:26] VITALS: BP 126/86; PULSE 92; TEMP 37.2; O2SAT 96
--- NOTE | 2017-10-20 10:43 | Cardiology Follow-Up ---
Subjective Subjective Date of Service: Oct 20, 2017. Pt evaluation today including: conversation w/ patient, physical exam, chart review, lab review, review of studies, review of inpatient medication list Additional Details: Pt seen and examined without complaint. Denies cp, sob, palpitations, lightheadedness or dizziness. Tele reviewed: sinus rhythm with intermittent RBBB. Problem List Medical Problems: (1) Chest pain, unspecified Status: Acute (2) Pericardial effusion Status: Acute Review of Systems Respiratory: No see HPI, No cough, No sputum, No wheezing, No shortness of breath, No dyspnea on exertion, No dyspnea at rest, No hemoptysis, No problem reported Cardiac: No see HPI, No chest pain, No orthopnea, No PND, No edema, No claudication, No palpitations, No problem reported Objective Vital Signs Last Vital Signs Documentation Date Time Temp Pulse Resp B/P (MAP) Pulse Ox O2 Delivery O2 Flow Rate FiO2 10/20/17 10:26 37.2 92 16 96 Room Air 10/20/17 08:00 126/86 (99) Physical Exam: General Appearance: WD/WN, no apparent distress Eyes: bilateral eyes normal inspection, bilateral eyes PERRL, bilateral eyes EOMI ENT: normal ENT inspection, hearing grossly normal, pharynx normal Neck: supple, no adenopathy, thyroid normal, no JVD, no carotid bruits, trachea midline Respiratory/Chest: chest non-tender, lungs clear, normal breath sounds, no respiratory distress, no accessory muscle use Cardiovascular: regular rate, rhythm, no edema, no JVD, no murmur, + gallop/S4 Abdomen: normal bowel sounds, non tender, soft, no organomegaly, no pulsatile mass Extremities: normal range of motion, non-tender, normal inspection, no pedal edema, no calf tenderness Neurologic/Psychiatric: event organizer II-XII nml as tested, no motor/sensory deficits, alert, normal mood/affect, oriented x 3 Skin: normal color, warm/dry, no rash Lymphatic: no adenopathy Assessment and Plan 1. chest pain pleuritic resolved 2. intermittent RBBB unclear etiology not a pathologic finding, rather benign no other arrhythmias cont coreg 25mg bid will follow up as outpatient no further testing at this time ok to d/c to home from cardiac standpoint
--- NOTE | 2017-10-20 11:21 | Discharge Summary ---
Discharge Summary Date of Service Oct 20, 2017. Discharge Summary Admission Date: Oct 18, 2017 at 22:07 Discharge Date: Oct 19, 2017 Discharge Disposition: Home Principal Diagnosis: Pleurisy,Chest pain-NO ACS,CAD Secondary Diagnoses/Problems: Please see H&P and hospital progress note Consultations: Cardiology Medication Reconciliation Continued Medications: Acetaminophen/Diphenhydramine (Tylenol Pm) 500 Mg/25 Mg Tab 1 TAB PO HS PRN for Sleep, TAB Aspirin (Aspirin Ec) 81 Mg Tab 81 MG PO DAILY Atorvastatin (Lipitor) 40 Mg Tab 40 MG PO DAILY, TAB Carvedilol (Coreg) 25 Mg Tab 25 MG PO BID, TAB Famotidine (Pepcid) 20 Mg Tab 20 MG PO BID, TAB Fluoxetine (Prozac) 20 Mg Cap 10 MG PO DAILY, CAP Furosemide (Lasix) 40 Mg Tab 40 MG PO 3XWK PRN for WATER RETENTION, TAB Insulin Glargine (Toujeo Solostar) 300 Unit/Ml Inj 75 UNITS SC HS Isosorbide Mononitrate Ext Rel (Imdur Ext Rel) 30 Mg Ertab 30 MG PO QAM, TAB Lisinopril (Zestril) 2.5 Mg Tab 2.5 MG PO QPM Nitroglycerin (Nitrostat) 0.4 Mg Sub 0.4 MG UT PRN, BTL Potassium Chloride (Micro-K Ext Rel) 10 Meq Cap 10 MEQ PO 3XWK PRN for PRN, CAP TAKE 10MEQ THREE TIMES A WEEK WITH LASIX 40MG TABLET NEEDED FOR WATER RETENTION Tramadol (Ultram) 50 Mg Tab 50-100 MG PO UD PRN for Pain, TAB TAKE 50MG EVERY 6 HOURS NEEDED FOR PAIN OR TAKE 100MG EVERY 12 HOURS NEEDED FOR PAIN Admission Information HPI (per Admitting provider): Patient is a 47 yo male who presents to the hospital by encouragement from his , for complaints of left sided chest pain that he admits has been occurring intermittently for a week. The patient reports the pain has progressed today, and became more severe which is why he agreed to go to the hospital. He reports the chest pain is on the left side, below his left breast, and not painful to palpation. He reports worsening of the pain with deep breathing. He has also had a non-productive cough for the past week and was around his who tested positive for flu a week ago. The patient states he has been sleeping upright in a recliner the last few nights as he feels uncomfortable laying flat. He also states for the past 1 month he has had a decline in his energy, his exercise tolerance, and has been getting fatigued very easily with even minimal activity. He has also had worsening ESCUDERO over this time. He reports being sleepy all of the time. He also experienced a sensation today where he had palpitations and felt his heart was skipping a beat. He states he became worried today because his symptoms reminded him of the anginal symptoms he had in 2015 prior to undergoing CABG. Patient reports compliance with medications and denies any recent changes to medications. 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 Family History Diabetes mellitus Heart disease Hypertension Lung disease Social History Smoking Status: Never Smoker Smokeless Tobacco Use: Yes Alcohol Use: none Drug Use: none Marital Status: Housing status: lives with family Occupational Status: disabled Immunizations History of Influenza Vaccine: Unknown History of Tetanus Vaccine?: Unknown Multi-Drug Resistant Organisms History of MDRO: Yes Allergies Coded Allergies: Omeprazole (Verified Allergy, Intermediate, SOB, FACIAL REDNESS, 10/18/17) Lansoprazole (Unverified Allergy, Mild, 10/18/17) Cephalexin (Verified Adverse Reaction, Intermediate, SEVERE NAUSEA & VOMITING, 10/18/17) Home Medications Scheduled Aspirin (Aspirin Ec), 81 MG PO DAILY Atorvastatin (Lipitor), 40 MG PO DAILY Carvedilol (Coreg), 25 MG PO BID Famotidine (Pepcid), 20 MG PO BID Fluoxetine (Prozac), 10 MG PO DAILY Insulin Glargine (Toujeo Solostar), 75 UNITS SC HS Isosorbide Mononitrate Ext Rel (Imdur Ext Rel), 30 MG PO QAM Lisinopril (Zestril), 2.5 MG PO QPM Nitroglycerin (Nitrostat), 0.4 MG UT PRN Scheduled PRN Acetaminophen/Diphenhydramine (Tylenol Pm), 1 TAB PO HS PRN for Sleep Furosemide (Lasix), 40 MG PO 3XWK PRN for WATER RETENTION Potassium Chloride (Micro-K Ext Rel), 10 MEQ PO 3XWK PRN for PRN Tramadol (Ultram), 50-100 MG PO UD PRN for Pain Review of Systems Constitutional: + fatigue, No fever, No chills, No sweats, No weight loss Eyes: No worsening of vision, No eye pain, No diplopia ENT: No hearing loss, No nasal symptoms, No sore throat, No trouble swallowing Respiratory: + cough, + shortness of breath, + dyspnea on exertion, No sputum, No wheezing Cardiovascular: + chest pain, + orthopnea, + palpitations, No edema Abdomen: No pain, No nausea, No vomiting, No diarrhea, No constipation Musculoskeletal: No joint pain, No muscle pain, No swelling Genitourinary - Male: No hematuria, No dysuria, No urinary frequency, No urinary urgency Neurologic: No paralysis, No weakness, No numbness/tingling, No vertigo Psychiatric: No depression symptoms, No anxiety, No insomnia Endocrine: + fatigue, No excessive thirst, No excessive urination Hematologic / Lymphatic: No abnormal bleeding/bruising, No clotting problems, No night sweats Integumentary: No rash, No itch, No new/changing skin lesions Physical Ex - H&P Physical Exam Vital Signs Date Time Temp Pulse Resp B/P (MAP) Pulse Ox O2 Delivery O2 Flow Rate FiO2 10/18/17 22:23 79 20 128/78 95 10/18/17 21:18 92 18 130/78 96 Room Air 10/18/17 20:23 87 10/18/17 19:51 94 Room Air 10/18/17 19:51 94 Room Air 10/18/17 19:22 37.0 94 18 113/71 96 Room Air General Appearance: WD/WN, no apparent distress Head: normocephalic, atraumatic Eyes: PERRL, EOMI, sclerae normal (conjunctivae clear) ENT: hearing grossly normal Neck: supple, no adenopathy, no JVD, no carotid bruits, trachea midline Respiratory/Chest: chest non-tender, lungs clear, normal breath sounds, no respiratory distress, no accessory muscle use Cardiovascular: regular rate, rhythm, no edema, no gallop, no JVD, no murmur Abdomen/GI: normal bowel sounds, non tender, soft, no organomegaly (no hepatosplenomegaly) Back: normal inspection Extremities/Musculoskelatal: no calf tenderness, no pedal edema, + pertinent finding (left BKA) Neurologic/Psych: no motor/sensory deficits, alert, normal mood/affect, oriented x 3 Skin: normal color, warm/dry, no rash Diagnostics - H&P Diagnostics Laboratory Results Results Past 24 Hours Test 10/18/17 19:40 10/18/17 20:33 10/18/17 22:16 10/18/17 22:18 Range/Units White Blood Count 8.12 4.8-10.8 K/uL Red Blood Count 5.42 4.7-6.1 M/uL Hemoglobin 15.9 14.0-18.0 g/dL Hematocrit 45.4 42-52 % Mean Corpuscular Volume 83.8 80-100 fL Mean Corpuscular Hemoglobin 29.3 25-34 pg Mean Corpuscular Hemoglobin Concent 35.0 32-36 g/dl Platelet Count 248 130-400 K/uL Mean Platelet Volume 10.2 7.4-10.4 fL Neutrophils (%) (Auto) 64.3 % Lymphocytes (%) (Auto) 23.6 % Monocytes (%) (Auto) 9.5 % Eosinophils (%) (Auto) 2.1 % Basophils (%) (Auto) 0.4 % Neutrophils # (Auto) 5.22 1.4-6.5 K/uL Lymphocytes # (Auto) 1.92 1.2-3.4 K/uL Monocytes # (Auto) 0.77 0.11-0.59 K/uL Eosinophils # (Auto) 0.17 0-0.5 K/uL Basophils # (Auto) 0.03 0-0.2 K/uL RDW Standard Deviation 38.8 36.4-46.3 fL RDW Coefficient of Variation 13.0 11.5-14.5 % Immature Granulocyte % (Auto) 0.1 % Immature Granulocyte # (Auto) 0.01 0.00-0.02 K/uL Sodium Level 135 136-145 mmol/L Potassium Level 4.1 3.5-5.1 mmol/L Chloride Level 101 98-107 mmol/L Carbon Dioxide Level 27 21-32 mmol/L Anion Gap 7.0 3-11 mmol/L Blood Urea Nitrogen 14 7-18 mg/dl Creatinine 1.31 0.60-1.40 mg/dl Est Creatinine Clear Calc Drug Dose 77.3 ml/min Estimated GFR () 73.6 Estimated GFR (Non- 63.5 BUN/Creatinine Ratio 11.0 10-20 Random Glucose 242 70-99 mg/dl Calcium Level 8.6 8.5-10.1 mg/dl Troponin I < 0.015 0-0.045 ng/ml Pro-B-Type Natriuretic Peptide 22 0-450 pg/ml Lipase 148 73-393 U/L Chemistry Specimen Hemolysis Prothrombin Time 10.7 9.0-12.0 SECONDS Prothromb Time International Ratio 1.0 0.9-1.1 Activated Partial Thromboplast Time 23.4 21.0-31.0 SECONDS Partial Thromboplastin Ratio 0.9 Influenza Type A Antigen Neg for Influ A NEG Influenza Type B Antigen Neg for Influ B NEG Impression - H&P Impression Assessment and Plan CHEST PAIN: -appears more pleuritic by description, however patient has significant CAD history and will be admitted to tele for further workup -first troponin negative, repeat x2 -TTE -Cardiology consulted -D-dimer is less than 500, making PE less likely -EKG: compared to prior, there are t wave inversions now more pronounced in V4 and V5, compared to 2 years ago when only in V1-V3 -ESR and CRP elevated -did have a previous pericarditis following his CABG in 2014 which resolved following treatment -influenza negative -CXR negative -ER attending performed bedside US and believed there was pericardial effusion without tamponade; this was discussed with Cardiology and the patient will undergo a formal TTE in the AM, will hold off on starting NSAID + colchicine until diagnosis is made -previous TTE from 2016 done as an outpatient showed EF 52%, trivial anterior loculated pericardial effusion CAD: -prior history of anterior LA s/p stent in 2009, and a CABG x4 in 2014 -last TTE was in 2015, EF 52% -repeat TTE -continue ASA, Statin, Coreg, and Imdur DM TYPE II: -check HbA1c -on Basal insulin, added correction scale as well -BSG AC and HS HTN: -stable -continue home meds HYPERLIPIDEMIA: -continue statin DEPRESSION: -continue fluoxetine VTE Prophylaxis VTE Risk Assessment Done? Y/N: Yes Risk Level: Moderate Physical Exam (per Admitting): General Appearance: WD/WN, no apparent distress Head: normocephalic, atraumatic Eyes: PERRL, EOMI, sclerae normal (conjunctivae clear) ENT: hearing grossly normal Neck: supple, no adenopathy, no JVD, no carotid bruits, trachea midline Respiratory/Chest: chest non-tender, lungs clear, normal breath sounds, no respiratory distress, no accessory muscle use Cardiovascular: regular rate, rhythm, no edema, no gallop, no JVD, no murmur Abdomen/GI: normal bowel sounds, non tender, soft, no organomegaly (no hepatosplenomegaly) Back: normal inspection Extremities/Musculoskelatal: no calf tenderness, no pedal edema, + pertinent finding (left BKA) Neurologic/Psych: no motor/sensory deficits, alert, normal mood/affect, oriented x 3 Skin: normal color, warm/dry, no rash Hospital Course CHEST PAIN:LIKELY SECONDARY TO PLEURISY -appears more pleuritic by description, however patient has significant CAD history and will be admitted to [facility] for further workup -negative Troponin -Cardiology consulted-appreciate input -D-dimer is less than 500, making PE less likely -EKG: Changes as noticed -ESR and CRP -nonsignificant -influenza negative -CXR negative -previous TTE from 2016 done as an outpatient showed EF 52%, trivial anterior loculated pericardial effusion -ECHO::Normal LV chamber size with moderate concentric LVH. * Normal LV systolic function with abnormal septal wall motion consistent with postoperative state, otherwise, normal. EF 55-60%. * Grade II diastolic dysfunction. * No significant valvular pathology. Still has minimal pleuritic pain No other symptoms CAD: -prior history of anterior LA s/p stent in 2009, and a CABG x4 in 2014 -last TTE was in 2016, EF 52% -repeat TTE::Normal LV chamber size with moderate concentric LVH. * Normal LV systolic function with abnormal septal wall motion consistent with postoperative state, otherwise, normal. EF 55-60%. * Grade II diastolic dysfunction. * No significant valvular pathology. -continue ASA, Statin, Coreg, and Imdur -cardiology cleared for discharge -a very brief episode of transient RBBB last evening -No more episodes -Has OP cardiology appointment -D/c Home today DM TYPE II: -check HbA1c -on Basal insulin, added correction scale as well -BSG AC and HS HTN: -stable -continue home meds HYPERLIPIDEMIA: -continue statin DEPRESSION: -continue fluoxetine DISPOSITION Discharge home today Total time spent on discharge = 35 minutes This includes examination of the patient, discharge planning, medication reconciliation, and communication with other providers. Discharge Instructions Date of Service Oct 20, 2017. Admission Reason for Admission: Chest Pain, Unspecified. Pericardial Effusion Discharge Discharge Diagnosis / Problem: Pleurisy,Chest pain-NO ACS,CAD Discharge Goals Goal(s): Prevent Disease Progression Activity Recommendations Activity Limitations: resume your previous activity . Instructions / Follow-Up Instructions / Follow-Up Please make an appointment with your PCP in 1 week. Keep cardiology appointment Current Hospital Diet Patient's current hospital diet: AHA Diet (Heart Healthy), Diabetes Type 2 Diet Discharge Diet Recommended Diet: AHA Diet (Heart Healthy), Diabetes Type 2 Diet Pending Studies Studies pending at discharge: no Laboratory Results Hemoglobin A1c Test 10/19/17 04:09 Range/Units Estimated Average Glucose 209 mg/dl Hemoglobin A1c 8.9 H 4.5-5.6 % Lipid Panel Test 10/19/17 04:09 Range/Units Triglycerides Level 86 0-150 mg/dl Cholesterol Level 103 0-200 mg/dl HDL Cholesterol 34 mg/dl Cholesterol/HDL Ratio 3.0 LDL Cholesterol, Calculated 52 mg/dl Medical Emergencies . Who to Call and When: Medical Emergencies: If at any time you feel your situation is an emergency, please call 911 immediately. . Non-Emergent Contact Non-Emergency issues call your: Primary Care Provider . Past History Medical & Surgical History: (1) Pleurisy (2) Chest pain, unspecified (3) Diabetes (4) CAD (coronary artery disease) (5) LA (myocardial infarction) (6) Quadruple heart bypass (7) Congestive heart failure . "Provider Documentation" section prepared by Armand Randolph. . VTE Core Measure Inpt VTE Proph given/why not?: Enoxaparin (Lovenox)SQ <Electronically signed by Armand Randolph M.D.> Signed: 10/19/17 [id number] Additional Copies To Larry Bartlett PA-C
== END 2017-10-20 12:42 | disposition home or self-care (01) ==
LOC: C.EDB 19:20 → C.2E 22:07 → EDBEDREQ 22:10 → ENRESERV 22:17
PROVIDERS: ADMIT Internal Medicine; ATTEND Internal Medicine
DX: R09.1 Pleurisy (principal); I45.10 Unspecified right bundle-branch block; I31.3 Pericardial effusion (noninflammatory); I11.0 Hypertensive heart disease with heart failure; I50.9 Heart failure, unspecified; I25.10 Atherosclerotic heart disease of native coronary artery without angina pectoris; E11.9 Type 2 diabetes mellitus without complications; E78.5 Hyperlipidemia, unspecified; F32.9 Major depressive disorder, single episode, unspecified; K21.9 Gastro-esophageal reflux disease without esophagitis; I25.2 Old myocardial infarction; Z83.3 Family history of diabetes mellitus; Z82.49 Family history of ischemic heart disease and other diseases of the circulatory system; Z83.6 Family history of other diseases of the respiratory system; Z79.82 Long term (current) use of aspirin; Z79.899 Other long term (current) drug therapy; Z95.1 Presence of aortocoronary bypass graft; Z88.1 Allergy status to other antibiotic agents; Z88.8 Allergy status to other drugs, medicaments and biological substances

== ENCOUNTER 2018-02-27 19:39 | Observation (INO) | payer BC ==
[~2018-02-27] VITALS: Ht 170.2 cm; Wt 96.8 kg
[~2018-02-27 19:39] MED LIST changes: -ASPI81TA28 PO; -ATOR10TA82 PO; -CLC6 PO; -CRG25 PO; -FAMO20TA11 PO; -FLUO10CA48 PO; -METF-383 PO; -PREN1TAB29 PO; -SITA100T3 PO
--- NOTE | 2018-02-27 19:55 | EMERGENCY ROOM VISIT NOTE ---
History Report prepared by Kole: Galileo Daniels Under the Supervision of: Dr. Mario Cai M.D. First contact with patient: 19:48 Chief Complaint: CARDIAC ASSESSMENT Stated Complaint: PAIN AROUND HEART, HX PERICARDITIS History of Present Illness The patient is a 47 year old white male with a past medical history of CAD, DM, TN, pleurisy, quadruple heart bypass, pericarditis who presents to the ED with a cc of intermittent left sided chest pain beginning a couple days ago. Positive worsening symptoms with deep breathing, lying flat, and exertion; intermittent sweating with exertion that is not always with the chest pain; intermittent rapid heart rate, using chewing tobacco, taking aspirin daily. Negative a history of blood clots in the legs or lungs, recent travel, swelling of his leg. Pt states he tried taking a fluid pill yesterday, and he urinated all day. He reports he takes a baby aspirin daily. Source of History: patient Onset: a couple days ago Position: chest (left) Timing: intermittent Modifying Factors (Worsening): exertion, breathing (deep), other (lying flat ) Note: Associated symptoms: intermittent sweating with exertion that is not always with the chest pain; intermittent rapid heart rate Denies: swelling to his legs Review of Systems See HPI for pertinent positives and negatives. A total of ten systems were reviewed and were otherwise negative. Past Medical & Surgical Medical Problems: (1) CAD (coronary artery disease) (2) Diabetes (3) TN (myocardial infarction) (4) Pleurisy (5) Quadruple heart bypass Family History Diabetes mellitus Heart disease Hypertension Lung disease Social History Smoking Status: Never Smoker Smokeless Tobacco Use: Yes Alcohol Use: none Drug Use: none Marital Status: Housing Status: lives with family Occupation Status: disabled Current/Historical Medications Scheduled Aspirin (Aspirin Ec), 81 MG PO DAILY Atorvastatin (Lipitor), 40 MG PO DAILY Carvedilol (Coreg), 25 MG PO BID Famotidine (Pepcid), 20 MG PO BID Fluoxetine (Prozac), 20 MG PO DAILY Insulin Glargine (Toujeo Solostar), 80 UNITS SC HS Isosorbide Mononitrate Ext Rel (Imdur Ext Rel), 30 MG PO QAM Lisinopril (Zestril), 2.5 MG PO QPM Metformin Hcl (Glucophage), 500 MG PO BID Nitroglycerin (Nitrostat), 0.4 MG UT PRN Scheduled PRN Acetaminophen/Diphenhydramine (Tylenol Pm), 1 TAB PO HS PRN for Sleep Furosemide (Lasix), 40 MG PO 3XWK PRN for WATER RETENTION Potassium Chloride (Micro-K Ext Rel), 10 MEQ PO 3XWK PRN for PRN Tramadol (Ultram), 50-100 MG PO UD PRN for Pain Allergies Coded Allergies: Omeprazole (Verified Allergy, Intermediate, SOB, FACIAL REDNESS, 10/18/17) Lansoprazole (Unverified Allergy, Mild, 10/18/17) Cephalexin (Verified Adverse Reaction, Intermediate, SEVERE NAUSEA & VOMITING, 10/18/17) Physical Exam Vital Signs Date Time Temp Pulse Resp B/P (MAP) Pulse Ox O2 Delivery O2 Flow Rate FiO2 02/27/18 21:00 79 18 119/83 95 Room Air 02/27/18 20:39 86 13 94 02/27/18 20:37 95 Room Air 02/27/18 20:33 97 Room Air 02/27/18 20:30 123/80 02/27/18 20:09 88 23 02/27/18 20:00 117/86 02/27/18 19:56 87 02/27/18 19:50 141/91 02/27/18 19:43 37.1 93 21 136/94 97 Room Air Physical Exam GENERAL: Awake, alert, well-appearing, NAD.Obese. Wearing glasses. HENT: Normocephalic, atraumatic. EYES: Normal conjunctiva. Sclera non-icteric. PERRL. No anisocoria. NECK: Supple. No nuchal rigidity. FROM. RESPIRATORY: CTAB, no rhonchi, wheezing, crackles CARDIAC: RRR, no MRG ABDOMEN: Soft, NTND, BS+. MSK: No chest wall TTP, no LE edema. Absent LLE distal to the knee. RLE - no calf pain. Negative Homans sign. Midline sternotomy scar. NEURO: GCS 15, CN 2-12 intact, moves all 4s on command SKIN: No rash or jaundice noted. Medical Decision & Procedures ER Provider Diagnostic Interpretation: X-ray: Per my interpretation, radiologist review. SINGLE VIEW CHEST CLINICAL HISTORY: Atypical chest pain. FINDINGS: An AP, portable, upright chest radiograph is compared to study dated 10/18/2017 and correlated with chest CT dated 06/10/2015. The examination is degraded by portable technique and patient rotation. The patient is status post midline sternotomy. The heart is mildly enlarged. The pulmonary vasculature is noncongested. No airspace consolidation or large pleural effusion is identified. No pneumothorax is seen. The bony thorax is grossly intact. IMPRESSION: Cardiomegaly with no acute cardiopulmonary abnormality. Electronically signed by: Jere Caldwell M.D. 02/27/2018 8:27 PM Dictated Date/Time: 02/27/2018 8:26 PM Laboratory Results 02/27/18 20:20 Red Blood Count 5.21, Mean Corpuscular Volume 83.5, Mean Corpuscular Hemoglobin 30.5, Mean Corpuscular Hemoglobin Concent 36.6, Mean Platelet Volume 10.0, Neutrophils (%) (Auto) 56.5, Lymphocytes (%) (Auto) 28.3, Monocytes (%) (Auto) 13.0, Eosinophils (%) (Auto) 1.5, Basophils (%) (Auto) 0.5, Neutrophils # (Auto ) 4.62, Lymphocytes # (Auto) 2.31, Monocytes # (Auto) 1.06, Eosinophils # (Auto ) 0.12, Basophils # (Auto) 0.04 02/27/18 20:20 Test 02/27/18 20:20 White Blood Count 8.17 K/uL (4.8-10.8) Red Blood Count 5.21 M/uL (4.7-6.1) Hemoglobin 15.9 g/dL (14.0-18.0) Hematocrit 43.5 % (42-52) Mean Corpuscular Volume 83.5 fL (80-100) Mean Corpuscular Hemoglobin 30.5 pg (25-34) Mean Corpuscular Hemoglobin Concent 36.6 g/dl (32-36) Platelet Count 239 K/uL (130-400) Mean Platelet Volume 10.0 fL (7.4-10.4) Neutrophils (%) (Auto) 56.5 % Lymphocytes (%) (Auto) 28.3 % Monocytes (%) (Auto) 13.0 % Eosinophils (%) (Auto) 1.5 % Basophils (%) (Auto) 0.5 % Neutrophils # (Auto) 4.62 K/uL (1.4-6.5) Lymphocytes # (Auto) 2.31 K/uL (1.2-3.4) Monocytes # (Auto) 1.06 K/uL (0.11-0.59) Eosinophils # (Auto) 0.12 K/uL (0-0.5) Basophils # (Auto) 0.04 K/uL (0-0.2) RDW Standard Deviation 38.6 fL (36.4-46.3) RDW Coefficient of Variation 12.8 % (11.5-14.5) Immature Granulocyte % (Auto) 0.2 % Immature Granulocyte # (Auto) 0.02 K/uL (0.00-0.02) Prothrombin Time 10.2 SECONDS (9.0-12.0) Prothromb Time International Ratio 1.0 (0.9-1.1) Activated Partial Thromboplast Time 24.5 SECONDS (21.0-31.0) Partial Thromboplastin Ratio 0.9 Anion Gap 8.0 mmol/L (3-11) Est Creatinine Clear Calc Drug Dose 98.2 ml/min Estimated GFR () 99.6 Estimated GFR (Non- 85.9 BUN/Creatinine Ratio 16.5 (10-20) Calcium Level 9.2 mg/dl (8.5-10.1) Magnesium Level 2.0 mg/dl (1.8-2.4) Total Bilirubin 0.6 mg/dl (0.2-1) Direct Bilirubin 0.2 mg/dl (0-0.2) Aspartate Amino Transf (AST/SGOT) 21 U/L (15-37) Alanine Aminotransferase (ALT/SGPT) 37 U/L (12-78) Alkaline Phosphatase 71 U/L (45-117) Total Creatine Kinase 153 U/L (39-308) Troponin I < 0.015 ng/ml (0-0.045) Pro-B-Type Natriuretic Peptide 29 pg/ml (0-450) Total Protein 8.1 gm/dl (6.4-8.2) Albumin 4.0 gm/dl (3.4-5.0) Lipase 100 U/L (73-393) Laboratory results reviewed by me Medications Administered Medications (Trade) Dose Ordered Sig/Jeremy Route Start Time Stop Time Status Last Admin Dose Admin Acetaminophen (Tylenol Tab) 1,000 mg NOW STAT PO 02/27/18 19:56 02/27/18 19:58 DC 02/27/18 20:32 1,000 MG Aspirin (Aspirin Chew) 243 mg NOW STAT PO 02/27/18 19:56 02/27/18 19:58 DC 02/27/18 20:32 243 MG Morphine Sulfate (MoRPHine SULFATE INJ) 4 mg NOW STAT IV 02/27/18 19:56 02/27/18 19:58 DC 02/27/18 20:26 4 MG ECG Per My Interpretation Indication: chest pain Rate (beats per minute): 94 Rhythm: normal sinus Findings: PVC, ST depression (V2-V4), T-wave inversion (V1-V4), other (Normal intervals. Normal axis.) Comparison ECG Date: 10/19/17 Change: TWI and depression are old. RBBB is gone. ED Course 1947: The patient was evaluated in room A11B. A complete history and physical exam was performed. 2058: Upon reexamination, the patient was resting. I discussed the test results and treatment plan with him. The patient will be evaluated for further management. 2100: I discussed the patient's case [facility] Paz[facility] The patient will be evaluated for further management. Medical Decision The patient is a 47 year old white male with a past medical history of CAD, DM, TN, pleurisy, quadruple heart bypass, pericarditis who presents to the ED with a cc of intermittent left sided chest pain beginning a couple days ago. Nursing notes reviewed. Ancillary studies and prior records reviewed. Differential diagnosis: Etiologies such as cardiac ischemia, aortic dissection, pulmonary embolism, pneumonia, pneumothorax, musculoskeletal, infections, pericarditis, myocarditis , esophageal rupture, gastrointestinal, as well as others were entertained. Patient was seen and evaluated the bedside. Patient does complain of some left- sided chest pain. Patient states it does radiate to his left shoulder. Patient states occasionally it is exertional. The patient described as pleuritic. No prior history of DVT or PE and the patient does not have any leg swelling his right lower extremity. Patient denies any recent prolonged car or plane travel. The patient does relate a history of prior pericarditis with an effusion. Patient did have blood work completed, EKG, troponin, chest x-ray, BNP, troponin. Patient's EKG looks improved from prior. He does have persistent T- wave inversions and depressions in his anterior leads. Patient was given the rest of a full dose aspirin, and morphine along with some Tylenol. Patient was feeling improved thereafter. Patient's other blood work is fairly unremarkable. Given the patient's history I believe he would benefit from serial enzymes in addition to a formal echo in order to look for pericardial effusion given the patient's history of pericarditis. I did speak with the on- call hospitalist who agreed to further evaluate treat the patient. The patient was counseled on tobacco cessation as the patient does chew tobacco. Medication Reconcilliation Current Medication List: was personally reviewed by me Blood Pressure Screening Patient's blood pressure: Normal blood pressure Blood pressure disposition: Did not require urgent referral Consults Time Called: 2057 Consulting Physician: Andrés Saldaña Hospitalist Returned Call: 2100 I discussed the patient's [facility] The patient will be evaluated for further management. Impression Primary Impression: Pericarditis Additional Impressions: Encounter for tobacco use cessation counseling Chest pain Scribe Attestation The scribe's documentation has been prepared under my direction and personally reviewed by me in its entirety. I confirm that the note above accurately reflects all work, treatment, procedures, and medical decision making performed by me. Departure Information Dispostion Being Evaluated By Hospitalist Referrals Larry Bartlett PA-C (PCP) Patient Instructions My [facility] Problem Qualifiers Primary Impression: Pericarditis Pericarditis type: unspecified type Chronicity: acute Qualified Codes: I30.9 - Acute pericarditis, unspecified Additional Impressions: Chest pain Chest pain type: unspecified Qualified Codes: R07.9 - Chest pain, unspecified
[2018-02-27] MEDS ORDERED: ACETAMINOPHEN 500 MG TAB PO STA (19:56)
[2018-02-27] MEDS ORDERED: MoRPHine SULFATE 4 MG/ML 1 ML CARP\\VIAL IV STA (19:56)
[2018-02-27] MEDS ORDERED: ASPIRIN 324 MG CHEW PO STA (19:56)
[2018-02-27] MEDS ORDERED: ATOR-24 PO (20:12)
[2018-02-27] MEDS ORDERED: CARV25TA2 PO (20:14)
[2018-02-27] MEDS ORDERED: FLUO20CA35 PO (20:15)
[2018-02-27] MEDS ORDERED: GLC/500 PO (20:23)
[2018-02-27] MEDS ORDERED: INSU1.2I SC (20:23)
[2018-02-27] MEDS ORDERED: LISI-789 PO (20:25)
[2018-02-27] MEDS ORDERED: ISOS30TA3 PO (20:25)
--- NOTE | 2018-02-27 20:28 | DIAGNOSTIC IMAGING REPORT ---
SINGLE VIEW CHEST CLINICAL HISTORY: Atypical chest pain. FINDINGS: An AP, portable, upright chest radiograph is compared to study dated 10/18/2017 and correlated with chest CT dated 06/10/2015. The examination is degraded by portable technique and patient rotation. The patient is status post midline sternotomy. The heart is mildly enlarged. The pulmonary vasculature is noncongested. No airspace consolidation or large pleural effusion is identified. No pneumothorax is seen. The bony thorax is grossly intact. IMPRESSION: Cardiomegaly with no acute cardiopulmonary abnormality. Electronically signed by: Jere Caldwell M.D. 02/27/2018 8:27 PM Dictated Date/Time: 02/27/2018 8:26 PM
[2018-02-27 20:32] LABS: BASO % 0.5 %; BASO ABS # 0.04 K/uL (0-0.2); EOS % 1.5 %; EOS ABS # 0.12 K/uL (0-0.5); HEMATOCRIT 43.5 % (42-52); HEMOGLOBIN 15.9 g/dL (14.0-18.0); IG# 0.02 K/uL (0.00-0.02); LYMPH % 28.3 %; LYMPH ABS # 2.31 K/uL (1.2-3.4); MEAN CELL VOLUME 83.5 fL (80-100); MEAN CORPUSCULAR HEMOGLOBIN 30.5 pg (25-34); MEAN CORPUSCULAR HGB CONC 36.6 g/dl (32-36); MONO ABS # 1.06 K/uL (0.11-0.59); NEUT % 56.5 %; NEUT ABS # 4.62 K/uL (1.4-6.5); PLATELET COUNT 239 K/uL (130-400); RED CELL DISTRIBUTION WIDTH CV 12.8 % (11.5-14.5); RED CELL DISTRIBUTION WIDTH SD 38.6 fL (36.4-46.3); WHITE BLOOD COUNT 8.17 K/uL (4.8-10.8)
[2018-02-27 20:43] LABS: PTT PATIENT 24.5 SECONDS (21.0-31.0)
[2018-02-27 20:51] LABS: ALKALINE PHOSPHATASE 71 U/L (45-117); ALT/SGPT 37 U/L (12-78); AST/SGOT 21 U/L (15-37); BLOOD UREA NITROGEN 17 mg/dl (7-18); CALCIUM 9.2 mg/dl (8.5-10.1); CARBON DIOXIDE 25 mmol/L (21-32); CREATININE 1.02 mg/dl (0.60-1.40); GLUCOSE 159 mg/dl (70-99); LIPASE 100 U/L (73-393); POTASSIUM 3.9 mmol/L (3.5-5.1); SODIUM 135 mmol/L (136-145); TOTAL PROTEIN 8.1 gm/dl (6.4-8.2)
[2018-02-27] MEDS ORDERED: NITROGLYCERIN 0.4 MG SL PER TAB CHARGE UT SCH (21:30)
[2018-02-27] MEDS ORDERED: ONDANSETRON INJ 2 MG/ML 2 ML VIAL IV PRN (21:30)
[2018-02-27] MEDS ORDERED: NITROGLYCERIN 0.4 MG SL PER TAB CHARGE SL PRN (21:30)
[2018-02-27] MEDS ORDERED: ALUMINUM/MAGNESIUM/SIMETH (MAALOX MAX) 30 ML UDC PO PRN (21:30)
[2018-02-27] MEDS ORDERED: POLYETHYLENE (MIRALAX) 17 GM PACK PO PRN (21:30)
[2018-02-27] MEDS ORDERED: FUROSEMIDE 40 MG TAB PO PRN (21:30)
[2018-02-27] MEDS ORDERED: POTASSIUM CHLORIDE 10 MEQ TABCR PO PRN (21:30)
[2018-02-27] MEDS ORDERED: MoRPHine SULFATE 4 MG/ML 1 ML CARP\\VIAL IV PRN (21:45)
[2018-02-27] MEDS ORDERED: GLUCOSE 10 TABS/TUBE PO PRN (22:00)
[2018-02-27] MEDS ORDERED: DEXTROSE 50% 50 ML SYR IV PRN (22:00)
[2018-02-27] MEDS ORDERED: CARBOHYDRATES FOR HYPOGLYCEMIA PO PRN (22:00)
[2018-02-27] MEDS ORDERED: GLUCOSE 40% GEL 15 GM TUBE PO PRN (22:00)
[2018-02-27] MEDS ORDERED: GLUCAGON FOR INJ 1 MG VIAL IM PRN (22:00)
[2018-02-27] MEDS ORDERED: FAMO20TA11 PO (22:13)
[2018-02-27] MEDS ORDERED: ASPI81TA28 PO (22:13)
[2018-02-27] MEDS ORDERED: IV FLUIDS COMPLETED PRN (22:45)
[2018-02-27] MEDS ORDERED: ACETAMINOPHEN 500 MG TAB PO PRN (23:15)
[2018-02-27 23:27] VITALS: BP 121/80; PULSE 74; TEMP 36.8; O2SAT 94; BMI 34.1
[2018-02-27] MEDS: INSULIN ASPART 100 UNITS/ML 3 ML PEN SC SCH (23:30)
[2018-02-27] MEDS ORDERED: INSULIN GLARGINE SOLOSTAR 100 UNITS/ML 3 ML PEN SC ONE (23:30)
[2018-02-28] VITALS (8 sets, daily range): BP systolic 103–128; BP diastolic 66–81; PULSE 76–103; TEMP 36.6–37.4; O2SAT 94–97
--- NOTE | 2018-02-28 03:05 | HISTORY & PHYSICAL EXAMINATION ---
DATE OF ADMISSION: 02/27/2018 CHIEF COMPLAINT: Chest pain. HISTORY OF PRESENT ILLNESS: This is a 47-year-old male with past medical history significant for diabetes, hypertension, history of palpitation, pleural pericarditis, CAD, status post stent and status post CABG, who presents with chest pain. The patient's pain is more on taking deep breath. This started since last but is getting worse. It is more when lying flat, or taking deep breath.And when he is ambulating, he is getting short of breath and sweating. Patient could not get to do much exertion because of his ongoing symptoms. The patient says this shortness of breath with exertion and sweating going on for the last 2-3 weeks but is getting progressively worse. Denies any fever or chills, no cough, some mild headache, no dizziness, no earache, no runny nose, no sore throat. He was nauseous yesterday with the pain, but right now he is okay. No abdominal pain. Normal bowel and bladder movements. No blood in the stools, no blood in the urine. No swelling in the legs. Currently resting comfortably and hemodynamically stable. The patient had come with same kind of symptoms in September 2017 and at that time thought to be from pleuritic pain, was discharged, and followed with the cardiology and was still having same symptoms when Z-Samm and prednisone for a few days was prescribed and his symptoms resolved at that time, and again, this started about few days back. He also has pericarditis post CABG in 2014. ALLERGIES: KEFLEX, LANSOPRAZOLE, AND OMEPRAZOLE. PAST MEDICAL HISTORY: As mentioned above. PAST SURGICAL HISTORY: CABG. CURRENT MEDICATIONS: The patient is on metformin 500 mg p.o. b.i.d., Tylenol PM 500 one tablet p.o. at bedtime p.r.n., aspirin 81 mg p.o. daily, Lipitor 40 mg p.o. daily, Coreg 25 mg p.o. b.i.d., Pepcid 20 mg p.o. b.i.d., Prozac 20 mg p.o. daily, Lasix 40 mg p.o. 3 times a week p.r.n. for edema, potassium supplements 10 mEq when taking Lasix, insulin Toujeo SoloSTAR 80 units at bedtime, Imdur 30 mg p.o. daily, lisinopril 2.5 mg p.o. at bedtime, Nitrostat 0.4 mg sublingual p.r.n., and tramadol 50 mg as needed. FAMILY HISTORY: Significant for his mom who had heart disease and of heart attack in the 50s, and maternal grandmother also had a heart disease in the early age. SOCIAL HISTORY: . No smoking history. Chews tobacco. No alcohol, no drug use. REVIEW OF SYSTEMS: As per HPI. Rest of the systems negative. PHYSICAL EXAMINATION: GENERAL: The patient is obese, not in distress. VITAL SIGNS: Temperature 37.1, pulse 82, respiratory rate 15, blood pressure 113/83, oxygen saturation 96% on room air. HEENT: No pallor, no icterus. Pupils equal, round, and reactive to light. NECK: No JVD, no neck masses, no carotid bruits. CARDIOVASCULAR SYSTEM: S1 and S2 heard, regular rate and rhythm, no murmur, no gallop. RESPIRATORY SYSTEM: Clear to auscultation bilaterally. No wheezing, no crackles. GASTROINTESTINAL: Abdomen is soft, bowel sounds present, nontender, no distention. CENTRAL NERVOUS SYSTEM: Cranial nerves II through XII grossly intact. Nonfocal. EXTREMITIES: Left BKA. No edema, no erythema seen. LABORATORY DATA: WBC is 8.1, hemoglobin 15.9, hematocrit 43.5, platelets 239. Sodium 135, potassium 3.9, chloride 102, bicarb 25, BUN 17, creatinine 1, serum glucose 159, calcium 9.2, magnesium 2, total bilirubin 0.3, direct bilirubin 0.2, AST 21, ALT 37, alkaline phosphatase 100, total creatine kinase 153, troponin I less than 0.015. Lipase 100. PT 10.2, INR 1, APTT 24.5,. Chest x-ray: Cardiomegaly, with no acute cardiopulmonary abnormalities seen. EKG: Sinus rhythm with PVCs at a rate of 94, with some T-wave inversions in V1, V2, V3, V4 but looks better than previous EKG. The right bundle branch is no longer present. ASSESSMENT AND PLAN: This is a 47-year-old male who presents with chest pain, more with a deep breath and lying flat. 1. Chest pain, most likely pleuritis, history of pericarditis in the past. The patient's pain is more when taking deep breath and lying flat. There is some shortness of breath with minimal exertion and sweating. We will check a D-dimer. If D-dimer is positive, we will check for CT of the chest to rule out PE. Also, will follow echocardiogram, follow serial cardiac enzymes. Monitor on tele floor. Troponin is negative. Because of history of pleuritis and pericarditis, we will give a dose of prednisone and monitor. Hemodynamically stable. Will give morphine p.r.n. 2. History of coronary artery disease, status post stents, status post coronary artery bypass graft. Continue his home medications of aspirin, Imdur, lisinopril, Coreg, Lipitor, Lasix as needed. 3. History of diabetes. Continue his home insulin. Hold metformin. Insulin sliding scale. Monitor the blood sugars. 4. History of hypertension. Continue his Imdur, lisinopril, Coreg. We will monitor the blood pressure. 5. Hyperlipidemia. Continue statin. 6. Deep vein thrombosis prophylaxis. SCDs and TEDs for now. 7. Disposition: Admit to tele floor. Expect to discharge home and follow with his family doctor and cardiology. Level 1 full code. MTDD
[2018-02-28] MEDS ORDERED: PERFLUTREN LIPID MICROSPHERE (DEFINITY) IV ONE (06:38)
[2018-02-28 07:04] LABS: BASO % 0.2 %; BASO ABS # 0.01 K/uL (0-0.2); EOS % 0.2 %; EOS ABS # 0.01 K/uL (0-0.5); HEMATOCRIT 43.7 % (42-52); HEMOGLOBIN 15.4 g/dL (14.0-18.0); IG# 0.01 K/uL (0.00-0.02); LYMPH % 13.1 %; LYMPH ABS # 0.78 K/uL (1.2-3.4); MEAN CELL VOLUME 84.2 fL (80-100); MEAN CORPUSCULAR HEMOGLOBIN 29.7 pg (25-34); MEAN CORPUSCULAR HGB CONC 35.2 g/dl (32-36); MEAN PLATELET VOLUME 9.9 fL (7.4-10.4); MONO % 4.5 %; MONO ABS # 0.27 K/uL (0.11-0.59); NEUT % 81.8 %; NEUT ABS # 4.86 K/uL (1.4-6.5); PLATELET COUNT 225 K/uL (130-400); RED CELL DISTRIBUTION WIDTH CV 12.8 % (11.5-14.5); RED CELL DISTRIBUTION WIDTH SD 38.9 fL (36.4-46.3); WHITE BLOOD COUNT 5.94 K/uL (4.8-10.8)
[2018-02-28 07:42] LABS: BLOOD UREA NITROGEN 18 mg/dl (7-18); CALCIUM 8.7 mg/dl (8.5-10.1); CARBON DIOXIDE 24 mmol/L (21-32); CREATININE 0.98 mg/dl (0.60-1.40); GLUCOSE 236 mg/dl (70-99); POTASSIUM 4.3 mmol/L (3.5-5.1); SODIUM 134 mmol/L (136-145)
[2018-02-28] MEDS: FAMOTIDINE 20 MG TAB PO SCH ×2 (08:43→20:59)
[2018-02-28] MEDS: ASPIRIN 81 MG ECTAB PO SCH (08:44)
[2018-02-28] MEDS: ATORVASTATIN 40 MG TAB PO SCH (08:44)
[2018-02-28] MEDS: CARVEDILOL 25 MG TAB PO SCH ×2 (08:44→20:59)
[2018-02-28] MEDS: FLUOXETINE HCL 20 MG CAP PO SCH (08:45)
[2018-02-28] MEDS: ISOSORBIDE MONONITRATE 30 MG TABCR PO SCH (08:45)
[2018-02-28] MEDS: INSULIN ASPART 100 UNITS/ML 3 ML PEN SC SCH ×4 (08:52→21:17)
--- NOTE | 2018-02-28 12:01 | ECHOCARDIOGRAM REPORT ---
*NOTICE TO RECEIVING LIBERTARIAN AGENCY This information is strictly Confidential and protected under [place] law. [place] law prohibits you from making any further disclosure of this information unless further disclosure is expressly permitted by the written consent of the person to whom it pertains or is authorized by law. A general authorization for the release of medical or other information is not sufficient for this purpose. Hospital accepts no responsibility if the information is made available to any other person, INCLUDING THE PATIENT. Interpretation Summary * Name: KRISTEL SHRESTHA Study Date: 02/28/2018 06:15 AM BP: 109/74 mmHg * Patient Location: C.2T\S\E221\S\1 HR: 85 * : 1970 (M/d/yyyy) Gender: Male Height: 67 in * Age: 47 yrs Ethnicity: CA Weight: 218 lb * Ordering Physician: Kenny Paz * Performed By: Isa Cai RDCS * * Reason For Study: CHEST PAIN * BSA: 2.1 m2 * -- Conclusions -- * The left ventricle is normal in size. * There is moderate concentric left ventricular hypertrophy. * The left ventricular wall motion is normal. * Left ventricular systolic function is normal. * Ejection Fraction = 65-70%. * Diastolic dysfunction, Grade II (pseudonormalization pattern) * There is no significant valvular disease * There is no pericardial effusion Procedure Details * A complete two-dimensional transthoracic echocardiogram was performed (2D, M-mode, Doppler and color flow Doppler). * The study was technically difficult. * A contrast injection of Definity was performed to improve assessment of LV function. * Contrast was injected into an intravenous site in the right arm. * One vial of Definity ultrasound contrast was diluted in normal saline to a total volume of 10 ml. A total of '2.5' ml of solution was administered during imaging. * Lot # [id number] of Definity utilized for procedure. * Expiration date 01/09. Left Ventricle * The left ventricle is normal in size. * There is moderate concentric left ventricular hypertrophy. * Ejection Fraction = 65-70%. * Left ventricular systolic function is normal. * The left ventricular wall motion is normal. Right Ventricle * The right ventricle is normal in size and function. Atria * The left atrial size is normal. * Right atrial size is normal. * No ASD detected; PFO is not assessed. Mitral Valve * The mitral valve anatomy is normal. * There is no mitral valve stenosis. * There is trace mitral regurgitation. Tricuspid Valve * The tricuspid valve anatomy is normal. * There is no tricuspid stenosis. * There is trace tricuspid regurgitation. Aortic Valve * The aortic valve is trileaflet. * No hemodynamically significant valvular aortic stenosis. * No aortic regurgitation is present. Pulmonic Valve * The pulmonic valve is not well visualized. Great Vessels * The aortic root is normal size. Pericardium/Pleural * There is no pericardial effusion. Great Vessels * Normal inferior vena cava diameter and respiratory variation suggests normal central venous pressure. Left Ventricular Diastolic Function * Diastolic dysfunction, Grade II (pseudonormalization pattern). MMode 2D Measurements and Calculations IVSd 1.3 cm IVSs 1.7 cm LVIDd 4.2 cm LVIDs 2.8 cm LVPWd 1.3 cm LVPWs 1.9 cm IVS/LVPW 1.0 FS 33.5 % EDV(Teich) 80.8 ml ESV(Teich) 30.3 ml EF(Teich) 62.5 % EDV(cubed) 76.7 ml ESV(cubed) 22.6 ml EF(cubed) 70.6 % % IVS thick 24.1 % % LVPW thick 38.7 % LV mass(C)d 212.8 grams LV mass(C)dI 101.4 grams/m\S\2 LV mass(C)s 193.8 grams LV mass(C)sI 92.4 grams/m\S\2 SV(Teich) 50.5 ml SI(Teich) 24.1 ml/m\S\2 SV(cubed) 54.1 ml SI(cubed) 25.8 ml/m\S\2 ACS 1.7 cm asc Aorta Diam 2.2 cm LVOT diam 2.1 cm LVOT area 3.5 cm\S\2 LVAd ap4 29.7 cm\S\2 LVLd ap4 7.9 cm EDV(MOD-sp4) 91.3 ml EDV(sp4-el) 94.8 ml LVAs ap4 13.5 cm\S\2 LVLs ap4 5.6 cm ESV(MOD-sp4) 27.6 ml ESV(sp4-el) 27.9 ml EF(MOD-sp4) 69.8 % EF(sp4-el) 70.6 % LVAd ap2 23.5 cm\S\2 LVLd ap2 7.6 cm EDV(MOD-sp2) 59.7 ml EDV(sp2-el) 61.9 ml LVAs ap2 11.2 cm\S\2 LVLs ap2 5.8 cm ESV(MOD-sp2) 17.0 ml ESV(sp2-el) 18.2 ml EF(MOD-sp2) 71.6 % EF(sp2-el) 70.6 % LVLd %diff -4.45 % EDV(MOD-bp) 74.3 ml LVLs %diff 4.3 % ESV(MOD-bp) 22.3 ml EF(MOD-bp) 70.0 % SV(MOD-sp4) 63.7 ml SI(MOD-sp4) 30.4 ml/m\S\2 SV(MOD-sp2) 42.8 ml SI(MOD-sp2) 20.4 ml/m\S\2 SV(MOD-bp) 52.1 ml SI(MOD-bp) 24.8 ml/m\S\2 SV(sp4-el) 67.0 ml SI(sp4-el) 31.9 ml/m\S\2 SV(sp2-el) 43.7 ml SI(sp2-el) 20.8 ml/m\S\2 Doppler Measurements and Calculations MV E max carly 62.8 cm/sec MV A max carly 52.1 cm/sec MV E/A 1.2 MV dec time 0.12 sec Ao V2 max 80.2 cm/sec Ao max PG 2.6 mmHg Ao max PG (full) 1.2 mmHg PEGGY(V,A) 2.5 cm\S\2 PEGGY(V,D) 2.5 cm\S\2 LV V1 max PG 1.4 mmHg LV V1 max 58.2 cm/sec PA V2 max 63.1 cm/sec PA max PG 1.6 mmHg TR max carly 155.3 cm/sec
[2018-02-28] MEDS ORDERED: IBUPROFEN 200 MG TAB PO STA (13:41)
[2018-02-28] MEDS ORDERED: HYDROmorphone INJ 1 MG/ML SYR IV STA (15:32)
--- NOTE | 2018-02-28 15:55 | CARDIOLOGY CONSULTATION ---
DATE OF CONSULTATION: 02/28/2018 INDICATIONS: Pleuritic chest pain. History of coronary artery disease. HISTORY OF PRESENT ILLNESS: Patient is a complex 47-year-old male whose past history is notable for atherosclerotic coronary disease with prior anterior myocardial infarction complicated by ventricular arrest in 2009 with stenting of the LAD at that time, progressive coronary disease with subsequent bypass grafting for left main stenosis in 2014 receiving a BULLOCK graft to the LAD, a saphenous vein graft to the right coronary artery, a saphenous vein graft to the diagonal and a right internal mammary artery to the obtuse marginal, history of dyslipidemia, poor statin tolerance, hypertension, diabetes mellitus, prior history of postoperative pericarditis as well as hospitalization at [facility] on 10/18/2017 with pleuritic pain. Patient presents to this admission noting symptoms of pleuritic pain times several days. He has also noted increased exertional dyspnea and diaphoresis with activity. Notes no specific chest pain, notes of heaviness relieved by rest. Notes no specific tachypalpitations. Notes no fevers, chills or productive cough. Weight has been stable. Has been taking medications as prescribed. Notes no melena, hematochezia, dysuria or hematuria. Symptoms remain present today on deep inspiration but have been improved after a dose of prednisone on admission per patient. Notes no rash or worsening edema. Notes no change in sleep patterns, takes medications as prescribed. ALLERGIES: CEPHALEXIN, OMEPRAZOLE, LANSOPRAZOLE. MEDICATIONS: At home were aspirin 81 mg per day, atorvastatin 40 mg per p.o. every day, carvedilol 12.5 mg b.i.d., famotidine 20 mg p.o. b.i.d., Prozac 20 mg every day, furosemide 40 mg 3 times per week as needed for leg edema, insulin, Imdur 30 mg p.o. every day, Zestril 2.5 mg p.o. every day, metformin 500 mg b.i.d., potassium chloride 10 mEq 3 times per week when using furosemide and tramadol p.r.n. pain. PAST SURGICAL HISTORY: Notable for coronary bypass grafting as described 03/2015 traumatic left leg amputation age [age]. FAMILY HISTORY: Positive for coronary disease in mother and father and paternal grandmother. SOCIAL HISTORY: Patient is a nonsmoker, nondrinker. PHYSICAL EXAMINATION: GENERAL: Patient is currently comfortable. Denies any dizziness or lightheadedness. Does note some mild pleuritic discomfort on deep inspiration. VITAL SIGNS: Heart rate is 100, blood pressure is 103/70. HEENT: Normocephalic, atraumatic. Nares without discharge. Throat was clear. NECK: Supple without thyromegaly, lymphadenopathy, JVD. There are no carotid bruits. LUNGS: Clear to auscultation. CARDIOVASCULAR: Regular with less than grade 1/6 systolic murmurs, no diastolic murmurs. No audible rub. PMI is nondisplaced. ABDOMEN: Obese, soft, nontender. EXTREMITIES: Without cyanosis or clubbing. There is no peripheral edema. LABORATORY DATA: White cell count is 5.9, hemoglobin is 15.4. Sodium is 134, potassium is 4.3, chloride is 102, bicarbonate is 24, BUN is 18, creatinine 0.98. Troponin I is less than 0.015 on 2 serial testings. C-reactive protein is elevated at 2.7. D-dimer was 260. Chest x-ray revealed no infiltrate or edema. EKG reveals sinus rhythm with T-wave inversion across the anterior precordial leads, intermittent right bundle-branch block. T-wave abnormalities are not significantly changed from prior tracings 09/2017. IMPRESSION AND PLAN: A 47-year-old male with underlying history of known ischemic heart disease, diabetes, hyperlipidemia, hypertension, presents now with atypical pain with pleuritic component with negative enzymes for ischemia though symptoms have also been associated with exertional diaphoresis and shortness of breath more pronounced in the recent past. Discussed findings in detail. Dobutamine stress echocardiography will be ordered for a.m. Patient has already received single dose of prednisone with improvement in symptoms. Patient in the past has had difficulties with marked gastrointestinal upset with colchicine. We will follow patient as clinical course progresses. Additional dose of ibuprofen is to be administered today.
--- NOTE | 2018-02-28 19:25 | Progress Note ---
Medicine Progress Note Date & Time of Visit: Feb 28, 2018 at 14:40 . Subjective CC: Follow-up visit for chest pain. HPI: Still experiencing some mild left anterior chest discomfort at rest. No SOB. Seen by Cariology. Dobutamine stress echo scheduled for tomorrow. ROS: General- no fever Resp- as noted above in HPI Cardiac- as noted above in HPI GI- no nausea, no vomiting . Objective Last 8 Hrs Date Time Temp Pulse Resp B/P (MAP) Pulse Ox O2 Delivery O2 Flow Rate FiO2 02/28/18 15:33 37.4 88 16 113/66 (82) 96 Room Air 02/28/18 12:23 37.2 103 16 103/70 (81) 96 Room Air Physical Exam: General- no distress Lungs- clear to auscultation; no respiratory distress Cardiovascular- RRR; no murmur, gallop, or rub appreciated; no JVD; no pretibial edema Abdomen- + bowel sounds, soft, nontender Extremities- no cyanosis; s/p amputation left leg; no right calf tenderness Neuro- alert, oriented Skin- warm & dry . Laboratory Results: Last 24 Hours Test 02/27/18 20:20 02/27/18 23:30 02/28/18 06:50 02/28/18 07:17 White Blood Count 8.17 K/uL 5.94 K/uL Red Blood Count 5.21 M/uL 5.19 M/uL Hemoglobin 15.9 g/dL 15.4 g/dL Hematocrit 43.5 % 43.7 % Mean Corpuscular Volume 83.5 fL 84.2 fL Mean Corpuscular Hemoglobin 30.5 pg 29.7 pg Mean Corpuscular Hemoglobin Concent 36.6 g/dl 35.2 g/dl Platelet Count 239 K/uL 225 K/uL Mean Platelet Volume 10.0 fL 9.9 fL Neutrophils (%) (Auto) 56.5 % 81.8 % Lymphocytes (%) (Auto) 28.3 % 13.1 % Monocytes (%) (Auto) 13.0 % 4.5 % Eosinophils (%) (Auto) 1.5 % 0.2 % Basophils (%) (Auto) 0.5 % 0.2 % Neutrophils # (Auto) 4.62 K/uL 4.86 K/uL Lymphocytes # (Auto) 2.31 K/uL 0.78 K/uL Monocytes # (Auto) 1.06 K/uL 0.27 K/uL Eosinophils # (Auto) 0.12 K/uL 0.01 K/uL Basophils # (Auto) 0.04 K/uL 0.01 K/uL RDW Standard Deviation 38.6 fL 38.9 fL RDW Coefficient of Variation 12.8 % 12.8 % Immature Granulocyte % (Auto) 0.2 % 0.2 % Immature Granulocyte # (Auto) 0.02 K/uL 0.01 K/uL Prothrombin Time 10.2 SECONDS Prothromb Time International Ratio 1.0 Activated Partial Thromboplast Time 24.5 SECONDS Partial Thromboplastin Ratio 0.9 D-Dimer 260 ug/L FEU Sodium Level 135 mmol/L 134 mmol/L Potassium Level 3.9 mmol/L 4.3 mmol/L Chloride Level 102 mmol/L 102 mmol/L Carbon Dioxide Level 25 mmol/L 24 mmol/L Anion Gap 8.0 mmol/L 8.0 mmol/L Blood Urea Nitrogen 17 mg/dl 18 mg/dl Creatinine 1.02 mg/dl 0.98 mg/dl Est Creatinine Clear Calc Drug Dose 98.2 ml/min 102.1 ml/min Estimated GFR () 99.6 104.5 Estimated GFR (Non- 85.9 90.2 BUN/Creatinine Ratio 16.5 18.0 Random Glucose 159 mg/dl 236 mg/dl Calcium Level 9.2 mg/dl 8.7 mg/dl Magnesium Level 2.0 mg/dl 2.2 mg/dl Total Bilirubin 0.6 mg/dl Direct Bilirubin 0.2 mg/dl Aspartate Amino Transf (AST/SGOT) 21 U/L Alanine Aminotransferase (ALT/SGPT) 37 U/L Alkaline Phosphatase 71 U/L Total Creatine Kinase 153 U/L Troponin I < 0.015 ng/ml < 0.015 ng/ml Pro-B-Type Natriuretic Peptide 29 pg/ml Total Protein 8.1 gm/dl Albumin 4.0 gm/dl Lipase 100 U/L Bedside Glucose 106 mg/dl 210 mg/dl C-Reactive Protein 2.71 mg/dl Test 02/28/18 11:27 02/28/18 14:16 02/28/18 16:42 Bedside Glucose 196 mg/dl 295 mg/dl Erythrocyte Sedimentation Rate 22 mm/hr Diagnostic Imaging: EKG performed at 04:47 reviewed and demonstrated NSR at 80 / minute, incomplete RBBB, ST depression and T-wave inversions V1-V6. ST & T-wave changes similar to EKG performed in ED last night. . Assessment & Plan CHEST PAIN / CORONARY ARTERY DISEASE History multi-vessel CAD, s/p DC with associated cardiac arrest managed with PCI LAD in 2009, s/p CABG x 3 2014. Now with atypical chest pain. EKGs show RBBB with ST / T-wave abnormalities similar to previous tracings. Troponins normal x 2. Echo showed moderate LVH, normal LV wall motion and systolic function, grade II diastolic dysfunction, no pericardial disease. Normal D-dimer makes thromboembolic disease very unlikely. C-reactive protein elevated, but no apparent pericardial disease on echo. Seen in consultation by Cardiology. Continue aspirin, carvedilol, lisinopril, isosorbide dinitrate, statin. Dobutamine stress echo recommended prior to discharge. HYPERTENSION Continue carvedilol, lisinopril, isosorbide dinitrate. DM TYPE 2 Hold metformin during hospital stay. Blood sugars running high. Basal / bolus insulin per protocol. Check Hgb A1C. DYSLIPIDEMIA Continue atorvastatin. VTE PROPHYLAXIS SCDs. DISPOSITION Expected discharge to home. Primary Care follow-up with Larry Bartlett PA-C. Cardiology follow-up with Dr. Daly. . Current Inpatient Medications: Current Inpatient Medications Medications (Trade) Dose Ordered Sig/Jeremy Route Start Time Stop Time Status Last Admin Dose Admin Al Hydrox/Mg Hydrox/Simethicone (Maalox Max Susp) 15 ml Q4H PRN PO 02/27/18 21:30 03/29/18 21:29 Ondansetron HCl (Zofran Inj) 4 mg Q6H PRN IV 02/27/18 21:30 03/29/18 21:29 Nitroglycerin (Nitrostat Tab) 0.4 mg UD PRN SL 02/27/18 21:30 03/29/18 21:29 Polyethylene (Miralax Powder Packet) 17 gm DAILY PRN PO 02/27/18 21:30 03/29/18 21:29 Aspirin (Ecotrin Tab) 81 mg DAILY PO 02/28/18 09:00 03/30/18 08:59 02/28/18 08:44 81 MG Atorvastatin Calcium (Lipitor Tab) 40 mg DAILY PO 02/28/18 09:00 03/30/18 08:59 02/28/18 08:44 40 MG Carvedilol (Coreg Tab) 25 mg BID PO 02/28/18 09:00 03/30/18 08:59 02/28/18 08:44 25 MG Famotidine (Pepcid Tab) 20 mg BID PO 02/28/18 09:00 03/30/18 08:59 02/28/18 08:43 20 MG Fluoxetine HCl (Prozac Cap) 20 mg DAILY PO 02/28/18 09:00 03/30/18 08:59 02/28/18 08:45 20 MG Isosorbide Mononitrate (Imdur Ext Rel Tab) 30 mg QAM PO 02/28/18 09:00 03/30/18 08:59 02/28/18 08:45 30 MG Lisinopril (Zestril Tab) 2.5 mg QPM PO 02/28/18 21:00 03/30/18 20:59 02/28/18 08:44 2.5 MG Tramadol HCl (Ultram Tab) 50 mg UD PRN PO 02/27/18 21:30 03/29/18 21:29 Diphenhydramine HCl (Benadryl Cap) 25 mg HS PRN PO 02/27/18 23:15 03/29/18 23:14 Insulin Glargine (Lantus Solostar Pen) 80 units HS SC 02/28/18 21:00 03/30/18 20:59 Furosemide (Lasix Tab) 40 mg 3X/WEEK PRN PO 02/27/18 21:30 03/29/18 21:29 Potassium Chloride (Klor-Con M10) 10 meq 3X/WEEK PRN PO 02/27/18 21:30 03/29/18 21:29 Insulin Aspart (novoLOG ASPART) SLIDING SCALE G... ACHS SC 02/27/18 23:30 03/29/18 23:29 02/28/18 17:01 10 UNITS Morphine Sulfate (MoRPHine SULFATE INJ) 2 mg Q3HWA PRN IV 02/27/18 21:45 03/13/18 21:44 Glucose (Glucose 40% Gel) 15-30 GRAMS 15 GRAMS... UD PRN PO 02/27/18 22:00 03/29/18 21:59 Glucose (Glucose Chew Tab) 4-8 Tablets 4 Tabl... UD PRN PO 02/27/18 22:00 03/29/18 21:59 Dextrose (Dextrose 50% 50ML Syringe) 25-50ML 25ML FOR ... UD PRN IV 02/27/18 22:00 03/29/18 21:59 Glucagon (Glucagon Inj) 1 mg UD PRN IM 02/27/18 22:00 03/29/18 21:59 Carbohydrates (Carbohydrates For Hypoglycemia) 15-30 GRAMS 15 grams if BSG 54-69... UD PRN PO 02/27/18 22:00 03/29/18 21:59 Miscellaneous (Iv Fluids Completed) 1 ea PRN PRN N/A 02/27/18 22:45 02/27/19 22:44 Acetaminophen (Tylenol Tab) 500 mg HS PRN PO 02/27/18 23:15 03/29/18 23:14
[2018-02-28] MEDS ORDERED: LISINOPRIL 2.5 MG TAB PO SCH (21:00)
[2018-02-28] MEDS ORDERED: INSULIN GLARGINE SOLOSTAR 100 UNITS/ML 3 ML PEN SC SCH (21:00)
[2018-02-28] MEDS: TRAMADOL HCL 50 MG TAB PO PRN (22:15)
[2018-03-01 03:58] VITALS: BP 123/85; PULSE 83; TEMP 36.4; O2SAT 98
[2018-03-01 07:06] VITALS: BP 120/80; PULSE 75; TEMP 36.9; O2SAT 96
[2018-03-01] MEDS: INSULIN ASPART 100 UNITS/ML 3 ML PEN SC SCH ×2 (07:34→11:54)
[2018-03-01] MEDS ORDERED: DEXTROSE 5% 1000ML 1,000 ML IV SCH (08:00)
[2018-03-01] MEDS: FAMOTIDINE 20 MG TAB PO SCH (08:18)
[2018-03-01] MEDS: ATORVASTATIN 40 MG TAB PO SCH (08:18)
[2018-03-01] MEDS: ISOSORBIDE MONONITRATE 30 MG TABCR PO SCH (08:18)
[2018-03-01] MEDS: FLUOXETINE HCL 20 MG CAP PO SCH (08:18)
[2018-03-01] MEDS: ASPIRIN 81 MG ECTAB PO SCH (08:18)
[2018-03-01] MEDS: CARVEDILOL 25 MG TAB PO SCH (08:18)
[2018-03-01] MEDS: TRAMADOL HCL 50 MG TAB PO PRN (08:29)
[2018-03-01 09:16] LABS: HEMOGLOBIN A1C 7.7 % (4.5-5.6)
[2018-03-01] MEDS ORDERED: DOBUTamine HCL 12.5 MG/ML 20 ML VIAL ONE (09:23)
[2018-03-01] MEDS ORDERED: ATROPINE SULFATE 0.1 MG/ML 10 ML SYR ONE (09:23)
[2018-03-01] MEDS ORDERED: METOPROLOL TARTRATE 1 MG/ML VIAL ONE ×5 (09:23→09:59)
--- NOTE | 2018-03-01 11:21 | DOBUTAMINE ECHO ---
*NOTICE TO RECEIVING DEMOCRAT AGENCY This information is strictly Confidential and protected under [place] law. [place] law prohibits you from making any further disclosure of this information unless further disclosure is expressly permitted by the written consent of the person to whom it pertains or is authorized by law. A general authorization for the release of medical or other information is not sufficient for this purpose. Hospital accepts no responsibility if the information is made available to any other person, INCLUDING THE PATIENT. Interpretation Summary * Name: KRISTEL SHRESTHA Study Date: 03/01/2018 08:53 AM BP: 119/75 mmHg * Patient Location: C.2T\S\E221\S\1 HR: 76 * : 1970 (M/d/yyyy) Gender: Male Height: 67 in * Age: 47 yrs Ethnicity: [place] Weight: 217 lb * Ordering Physician: Surjit Daly * Referring Physician: Self, Referred * Performed By: Ann-Marie Leonard RCS * * Reason For Study: Chest Pain * BSA: 2.1 m2 * There is no inducible ischemia noted at peak stress. * STRESS STUDY: Normal pharmacologic stress echocardiogram. No echocardiographic or ECG evidence of myocardial ischemia having achieved heart rate adequate for diagnostic purposes. * -- Conclusions -- * Resting wall motion: Normal. Stress wall motion: Appropriate increase in Left ventricular systolic function and decrease in cavity size. No stress induced segmental wall motion abnormalities. * Baseline EKG reveals sinus rhythm at 76 incomplete right bundle branch block chronic T-wave inversion V3 through V4 * Stress EKG revealed no ischemic ST segment changes. There are rare ventricular ectopic beats though sensed by patient * Left ventricular systolic function is normal. * Ejection Fraction = 60-65%. Procedure Details * DOBUTAMINE ECHO, CPT#41513 * A contrast injection of Definity was performed to improve assessment of LV function. * Contrast was injected into an intravenous site in the right arm. * One vial of Definity ultrasound contrast was diluted in normal saline to a total volume of 10 ml. A total of '8' ml of solution was administered during imaging. * Lot # [id number] of Definity utilized for procedure. * Expiration date 1MAY19. * The attending nurse who injected the contrast agent was Saba Cloud RN. Left Ventricle * Ejection Fraction = 60-65%. * Left ventricular systolic function is normal. * Resting wall motion: Normal. Stress wall motion: Appropriate increase in Left ventricular systolic function and decrease in cavity size. No stress induced segmental wall motion abnormalities. Stress Parameters * Baseline EKG reveals sinus rhythm at 76 incomplete right bundle branch block chronic T-wave inversion V3 through V4 * Stress EKG revealed no ischemic ST segment changes. There are rare ventricular ectopic beats though sensed by patient * The stress portion of this study was personally supervised by the undersigned interpreting physician. * Rest heart rate was '76' BPM. * Rest blood pressure was '119/75' * Maximum heart rate achieved was 155 bpm. * Maximum heart rate was 90 % of maximum age-predicted heart rate. * Maximum blood pressure was '243/109' * Maximum Dobutamine infusion rate was '50' mcg/kg/min. * A total of 2 mg of intravenous Atropine was used to supplement Dobutamine for heart rate response. * Dobutamine infusion was terminated due to achieving target heart rate * A total of 25 mg of IV Metoprolol was administered to reverse Dobutamine-induced tachycardia.
[2018-03-01 11:40] VITALS: BP 97/55; PULSE 95; TEMP 37.1; O2SAT 93
--- NOTE | 2018-03-01 11:51 | PROGRESS NOTE ---
DATE: 03/01/2018 The patient seen and examined. Chart, medications, telemetry reviewed. SUBJECTIVE: The patient had a reduced chest discomfort overnight. Notes no dizziness or lightheadedness. Notes no syncope or near syncope. Still has occasional pleuritic discomfort on deep inspiration. OBJECTIVE: VITAL SIGNS: Heart rate is 75, blood pressure is 120/80. NECK: Thick. There is no distinct jugular venous distention. LUNGS: Clear. CARDIOVASCULAR: Regular. There is no audible rub. ABDOMEN: Soft. EXTREMITIES: Without cyanosis or clubbing. There is no peripheral edema. LABORATORY DATA: Dobutamine stress echocardiography was performed today which demonstrates no stress-induced ischemia at adequate heart rate and blood pressure response. The patient did sensed ventricular ectopy during the study. PLAN AND RECOMMENDATIONS: Signs and symptoms of pleural pericarditis with elevated sed rate and CRP. In the past, the patient has been poorly tolerant of colchicine. We will discharge on course of ibuprofen. In addition, we will increase carvedilol slightly to 37.5 mg a.m., 25 mg p.m. Follow up will be through cardiology as an outpatient.
--- NOTE | 2018-03-01 13:44 | Progress Note ---
Medicine Progress Note Date & Time of Visit: Mar 01, 2018 at 13:44 . Subjective CC: Follow-up visit for chest pain. HPI: Persistent mild left anterior chest discomfort at rest. No SOB. Dobutamine stress echo went well today- no evidence of stress-induced ischemia. ROS: General- no fever Resp- as noted above in HPI Cardiac- as noted above in HPI GI- no nausea, no vomiting . Objective Last 8 Hrs Date Time Temp Pulse Resp B/P (MAP) Pulse Ox O2 Delivery O2 Flow Rate FiO2 03/01/18 11:40 37.1 95 16 97/55 (69) 93 Room Air 03/01/18 08:25 Room Air 03/01/18 07:06 36.9 75 17 120/80 (93) 96 Room Air Physical Exam: General- no distress Lungs- clear to auscultation; no respiratory distress Cardiovascular- RRR; no murmur, gallop, or rub appreciated; no JVD; no pretibial edema Abdomen- + bowel sounds, soft, nontender Extremities- no cyanosis; s/p amputation left leg with prosthesis; no right calf tenderness Neuro- alert, oriented Skin- warm & dry . Laboratory Results: Last 24 Hours Test 02/28/18 14:16 02/28/18 16:42 02/28/18 20:56 03/01/18 06:40 Erythrocyte Sedimentation Rate 22 mm/hr Bedside Glucose 295 mg/dl 156 mg/dl Estimated Average Glucose 174 mg/dl Hemoglobin A1c 7.7 % Test 03/01/18 07:28 03/01/18 10:34 03/01/18 11:23 Bedside Glucose 77 mg/dl 74 mg/dl 119 mg/dl Date/Time Source Procedure Growth Status 03/01/18 11:30 Nasal MRSA DNA Surveillance Screen - Final Specimen Negative for MRSA by DNA Probe Complete Assessment & Plan CHEST PAIN / CORONARY ARTERY DISEASE History multi-vessel CAD, s/p AL with associated cardiac arrest managed with PCI LAD in 2009, s/p CABG x 3 2014. Now with atypical chest pain. EKGs show RBBB with ST / T-wave abnormalities similar to previous tracings. Troponins normal x 2. Echo showed moderate LVH, normal LV wall motion and systolic function, grade II diastolic dysfunction, no pericardial disease. Normal D-dimer makes thromboembolic disease very unlikely. C-reactive protein elevated, but no apparent pericardial disease on echo. Seen in consultation by Cardiology. Dobutamine stress echo did not show any evidence of stress-induced ischemia. Suspected pericarditis. Did not tolerate colchicine in the past. Ibuprofen 400 mg TID recommended. Continue aspirin, carvedilol, lisinopril, isosorbide dinitrate, statin. HYPERTENSION Continue carvedilol, lisinopril, isosorbide dinitrate. DM TYPE 2 Usually fairly-well controlled. Hgb A1C = 7.7. Held metformin during hospital stay. Received basal / bolus insulin per protocol. FBS 77 morning of discharge. DYSLIPIDEMIA Continue atorvastatin. VTE PROPHYLAXIS SCDs. DISPOSITION Discharge to home. Primary Care follow-up with Larry Bartlett PA-C. Cardiology follow-up with Dr. Daly. . Current Inpatient Medications: Current Inpatient Medications Medications (Trade) Dose Ordered Sig/Jeremy Route Start Time Stop Time Status Last Admin Dose Admin Al Hydrox/Mg Hydrox/Simethicone (Maalox Max Susp) 15 ml Q4H PRN PO 02/27/18 21:30 03/29/18 21:29 Ondansetron HCl (Zofran Inj) 4 mg Q6H PRN IV 02/27/18 21:30 03/29/18 21:29 Nitroglycerin (Nitrostat Tab) 0.4 mg UD PRN SL 02/27/18 21:30 03/29/18 21:29 Polyethylene (Miralax Powder Packet) 17 gm DAILY PRN PO 02/27/18 21:30 03/29/18 21:29 Aspirin (Ecotrin Tab) 81 mg DAILY PO 02/28/18 09:00 03/30/18 08:59 03/01/18 08:18 81 MG Atorvastatin Calcium (Lipitor Tab) 40 mg DAILY PO 02/28/18 09:00 03/30/18 08:59 03/01/18 08:18 40 MG Famotidine (Pepcid Tab) 20 mg BID PO 02/28/18 09:00 03/30/18 08:59 03/01/18 08:18 20 MG Fluoxetine HCl (Prozac Cap) 20 mg DAILY PO 02/28/18 09:00 03/30/18 08:59 03/01/18 08:18 20 MG Isosorbide Mononitrate (Imdur Ext Rel Tab) 30 mg QAM PO 02/28/18 09:00 03/30/18 08:59 03/01/18 08:18 30 MG Lisinopril (Zestril Tab) 2.5 mg QPM PO 02/28/18 21:00 03/30/18 20:59 02/28/18 08:44 2.5 MG Tramadol HCl (Ultram Tab) 50 mg UD PRN PO 02/27/18 21:30 03/29/18 21:29 03/01/18 08:29 50 MG Diphenhydramine HCl (Benadryl Cap) 25 mg HS PRN PO 02/27/18 23:15 03/29/18 23:14 Insulin Glargine (Lantus Solostar Pen) 80 units HS SC 02/28/18 21:00 03/30/18 20:59 02/28/18 21:18 80 UNITS Furosemide (Lasix Tab) 40 mg 3X/WEEK PRN PO 02/27/18 21:30 03/29/18 21:29 Potassium Chloride (Klor-Con M10) 10 meq 3X/WEEK PRN PO 02/27/18 21:30 03/29/18 21:29 Insulin Aspart (novoLOG ASPART) SLIDING SCALE G... ACHS SC 02/27/18 23:30 03/29/18 23:29 03/01/18 11:54 4 UNITS Morphine Sulfate (MoRPHine SULFATE INJ) 2 mg Q3HWA PRN IV 02/27/18 21:45 03/13/18 21:44 Glucose (Glucose 40% Gel) 15-30 GRAMS 15 GRAMS... UD PRN PO 02/27/18 22:00 03/29/18 21:59 Glucose (Glucose Chew Tab) 4-8 Tablets 4 Tabl... UD PRN PO 02/27/18 22:00 03/29/18 21:59 Dextrose (Dextrose 50% 50ML Syringe) 25-50ML 25ML FOR ... UD PRN IV 02/27/18 22:00 03/29/18 21:59 Glucagon (Glucagon Inj) 1 mg UD PRN IM 02/27/18 22:00 03/29/18 21:59 Carbohydrates (Carbohydrates For Hypoglycemia) 15-30 GRAMS 15 grams if BSG 54-69... UD PRN PO 02/27/18 22:00 03/29/18 21:59 Miscellaneous (Iv Fluids Completed) 1 ea PRN PRN N/A 02/27/18 22:45 02/27/19 22:44 Acetaminophen (Tylenol Tab) 500 mg HS PRN PO 02/27/18 23:15 03/29/18 23:14 Carvedilol (Coreg Tab) 37.5 mg QAM PO 03/02/18 09:00 04/01/18 08:59 Carvedilol (Coreg Tab) 25 mg QPM PO 03/01/18 21:00 03/31/18 20:59 Ibuprofen (Advil Tab) 400 mg TID PO 03/01/18 14:00 03/08/18 13:59
[2018-03-01] MEDS ORDERED: MTR400 PO (13:47)
[2018-03-01] MEDS ORDERED: CRG25 PO (13:47)
--- NOTE | 2018-03-01 13:51 | Discharge Instructions ---
Discharge Instructions Date of Service Mar 01, 2018. Admission Reason for Admission: Chest Pain Discharge Discharge Diagnosis / Problem: chest pain - suspected pericarditis ( inflammation around heart) Discharge Goals Goal(s): Decrease discomfort, Improve disease control Activity Recommendations Activity Limitations: resume your previous activity . Instructions / Follow-Up Instructions / Follow-Up APPOINTMENTS: CARDIOLOGY Dr. Daly Please call office for appointment in about 2 weeks. PRIMARY CARE Larry Bartlett PA-C OTHER INSTRUCTIONS: Take ibuprofen 400 mg 3 times a day with food until Dr. Daly tells you to stop it. Increase carvedilol (Coreg): 37.5 mg 1 + 1/2 pill morning 25 mg 1 pill bed time Seek medical attention if you have: * temperature above 101 * chest pain or trouble breathing * abdominal pain, nausea, vomiting * diarrhea, dark stools or bloody stools * any unanswered questions or concerns Call 911 if symptoms are severe. Call if you have any questions or problems. My cell # is [phone]. You can also reach a [facility] hospitalist on duty at [facility] 24 hours a day by calling [phone]. Please take good care of yourself. Jeffery Tolliver . Current Hospital Diet Patient's current hospital diet: AHA Diet (Heart Healthy) Discharge Diet Recommended Diet: AHA Diet (Heart Healthy), Diabetes Type 2 Diet Procedures Procedures Performed: echocardiogram stress test Pending Studies Studies pending at discharge: no Laboratory Results Hemoglobin A1c Test 03/01/18 06:40 Range/Units Estimated Average Glucose 174 mg/dl Hemoglobin A1c 7.7 H 4.5-5.6 % Medical Emergencies . Who to Call and When: Medical Emergencies: If at any time you feel your situation is an emergency, please call 911 immediately. . Non-Emergent Contact Non-Emergency issues call your: Primary Care Provider, Project Estimator, Hospital Doctor . . "Provider Documentation" section prepared by Jeffery Tolliver. .
[2018-03-01] MEDS ORDERED: IBUPROFEN 200 MG TAB PO SCH (14:00)
[2018-03-01 14:08] VITALS: Ht 170.2 cm; Wt 96.8 kg
[2018-03-01 14:10] VITALS: BP 97/55; PULSE 95; TEMP 37.1; O2SAT 93
[2018-03-01] MEDS ORDERED: CARVEDILOL 25 MG TAB PO SCH (21:00)
[2018-03-02] MEDS ORDERED: CARVEDILOL 25 MG TAB PO SCH (09:00)
--- NOTE | 2018-03-02 21:11 | Discharge Summary ---
Discharge Summary Date of Service Mar 02, 2018. Discharge Summary Admission Date: Feb 27, 2018 at 21:38 Discharge Date: Mar 01, 2018 Discharge Disposition: Home Principal Diagnosis: chest pain- suspected pericarditis . Secondary Diagnoses/Problems: Chronic and Resolved Medical Problems: (1) CAD (coronary artery disease) Status: Chronic (2) Diabetes mellitus, type 2 Status: Chronic (3) Dyslipidemia Status: Chronic (4) Hypertension Status: Chronic Surgical Problems: (1) Status post coronary artery bypass grafting Permanent Comment: 2014 CABG: BULLOCK-LAD, SVG-RCA, SVG-diagonal, JEFFRY-obtuse marginal Status: Chronic (2) Status post coronary artery stent placement Permanent Comment: 2009 PCI LAD Status: Chronic (3) Traumatic amputation of left leg Status: Chronic . Procedures: cardiac monitoring rest echo dobutamine stress echo . Consultations: Cardiology with Dr. Daly . Medication Reconciliation New Medications: Carvedilol (Carvedilol) 25 Mg Tab 0 PO UD, #225 TAB 3 Refills 37.5 mg ( 1 + 1/2 pill ) in the morning 25 mg ( 1 pill ) at bedtime Ibuprofen (Ibuprofen) 400 Mg Tab 400 MG PO TID, #90 TAB 1 Refill Take with food. Continued Medications: Acetaminophen/Diphenhydramine (Tylenol Pm) 500 Mg/25 Mg Tab 1 TAB PO HS PRN for Sleep, TAB Aspirin (Aspirin Ec) 81 Mg Tab 81 MG PO DAILY Atorvastatin (Lipitor) 40 Mg Tab 40 MG PO DAILY, TAB Famotidine (Pepcid) 20 Mg Tab 20 MG PO BID, TAB Fluoxetine (Prozac) 20 Mg Cap 20 MG PO DAILY, CAP Furosemide (Lasix) 40 Mg Tab 40 MG PO 3XWK PRN for WATER RETENTION, TAB Insulin Glargine (Toujeo Solostar) 300 Unit/Ml Inj 80 UNITS SC HS Isosorbide Mononitrate Ext Rel (Imdur Ext Rel) 30 Mg Ertab 30 MG PO QAM, TAB Lisinopril (Zestril) 2.5 Mg Tab 2.5 MG PO QPM Metformin Hcl (Glucophage) 500 Mg Tab 500 MG PO BID, TAB Nitroglycerin (Nitrostat) 0.4 Mg Sub 0.4 MG UT PRN, BTL Potassium Chloride (Micro-K Ext Rel) 10 Meq Cap 10 MEQ PO 3XWK PRN for PRN, CAP TAKE 10MEQ THREE TIMES A WEEK WITH LASIX 40MG TABLET NEEDED FOR WATER RETENTION Tramadol (Ultram) 50 Mg Tab 50-100 MG PO UD PRN for Pain, TAB TAKE 50MG EVERY 6 HOURS NEEDED FOR PAIN OR TAKE 100MG EVERY 12 HOURS NEEDED FOR PAIN Discontinued Medications: Carvedilol (Coreg) 25 Mg Tab 25 MG PO BID, TAB Admission Information HPI (per Admitting provider): This is a 47-year-old male with past medical history significant for diabetes, hypertension, history of palpitation, pleural pericarditis, CAD, status post stent and status post CABG, who presents with chest pain. The patient's pain is more on taking deep breath. This started since last but is getting worse. It is more when lying flat, or taking deep breath.And when he is ambulating, he is getting short of breath and sweating. Patient could not get to do much exertion because of his ongoing symptoms. The patient says this shortness of breath with exertion and sweating going on for the last 2-3 weeks but is getting progressively worse. Denies any fever or chills, no cough, some mild headache, no dizziness, no earache, no runny nose, no sore throat. He was nauseous yesterday with the pain, but right now he is okay. No abdominal pain. Normal bowel and bladder movements. No blood in the stools, no blood in the urine. No swelling in the legs. Currently resting comfortably and hemodynamically stable. The patient had come with same kind of symptoms in September 2017 and at that time thought to be from pleuritic pain, was discharged, and followed with the cardiology and was still having same symptoms when Z-Samm and prednisone for a few days was prescribed and his symptoms resolved at that time, and again, this started about few days back. He also has pericarditis post CABG in 2014. . Physical Exam (per Admitting): GENERAL: The patient is obese, not in distress. VITAL SIGNS: Temperature 37.1, pulse 82, respiratory rate 15, blood pressure 113/83, oxygen saturation 96% on room air. HEENT: No pallor, no icterus. Pupils equal, round, and reactive to light. NECK: No JVD, no neck masses, no carotid bruits. CARDIOVASCULAR SYSTEM: S1 and S2 heard, regular rate and rhythm, no murmur, no gallop. RESPIRATORY SYSTEM: Clear to auscultation bilaterally. No wheezing, no crackles. GASTROINTESTINAL: Abdomen is soft, bowel sounds present, nontender, no distention. CENTRAL NERVOUS SYSTEM: Cranial nerves II through XII grossly intact. Nonfocal. EXTREMITIES: Left BKA. No edema, no erythema seen. . Hospital Course CHEST PAIN / CORONARY ARTERY DISEASE History multi-vessel CAD, s/p AL with associated cardiac arrest managed with PCI LAD in 2009, s/p CABG x 4 in 2014. Presented with atypical chest pain. EKGs show RBBB with ST / T-wave abnormalities similar to previous tracings. Troponins normal x 2. Echo showed moderate LVH, normal LV wall motion and systolic function, grade II diastolic dysfunction, no pericardial disease. Normal D-dimer made thromboembolic disease very unlikely. C-reactive protein elevated, but no apparent pericardial disease on echo. Seen in consultation by Cardiology. Dobutamine stress echo did not show any evidence of stress-induced ischemia. Persistent anterior chest pain at rest- suspected pericarditis. Did not tolerate colchicine in the past. Ibuprofen 400 mg TID recommended. Continue aspirin, carvedilol, lisinopril, isosorbide dinitrate, statin. HYPERTENSION Continue carvedilol, lisinopril, isosorbide dinitrate. DM TYPE 2 Usually fairly-well controlled. Hgb A1C = 7.7. Held metformin during hospital stay. Received basal / bolus insulin per protocol. FBS 77 morning of discharge. DYSLIPIDEMIA Continue atorvastatin. VTE PROPHYLAXIS SCDs. DISPOSITION Discharge to home. Primary Care follow-up with Larry Bartlett PA-C. Cardiology follow-up with Dr. Daly. . Discharge Instructions Discharge Instructions Date of Service Mar 01, 2018. Admission Reason for Admission: Chest Pain Discharge Discharge Diagnosis / Problem: chest pain - suspected pericarditis ( inflammation around heart) Discharge Goals Goal(s): Decrease discomfort, Improve disease control Activity Recommendations Activity Limitations: resume your previous activity . Instructions / Follow-Up Instructions / Follow-Up APPOINTMENTS: CARDIOLOGY Dr. Daly Please call office for appointment in about 2 weeks. PRIMARY CARE Larry Bartlett PA-C OTHER INSTRUCTIONS: Take ibuprofen 400 mg 3 times a day with food until Dr. Daly tells you to stop it. Increase carvedilol (Coreg): 37.5 mg 1 + 1/2 pill morning 25 mg 1 pill bed time Seek medical attention if you have: * temperature above 101 * chest pain or trouble breathing * abdominal pain, nausea, vomiting * diarrhea, dark stools or bloody stools * any unanswered questions or concerns Call 911 if symptoms are severe. Call if you have any questions or problems. My cell # is [phone]. You can also reach a [facility] hospitalist on duty at [facility] [address] 24 hours a day by calling [phone]. Please take good care of yourself. Jeffery Tolliver . Current Hospital Diet Patient's current hospital diet: AHA Diet (Heart Healthy) Discharge Diet Recommended Diet: AHA Diet (Heart Healthy), Diabetes Type 2 Diet Procedures Procedures Performed: echocardiogram stress test Pending Studies Studies pending at discharge: no Laboratory Results Hemoglobin A1c Test 03/01/18 06:40 Range/Units Estimated Average Glucose 174 mg/dl Hemoglobin A1c 7.7 H 4.5-5.6 % Medical Emergencies . Who to Call and When: Medical Emergencies: If at any time you feel your situation is an emergency, please call 911 immediately. . Non-Emergent Contact Non-Emergency issues call your: Primary Care Provider, [facility], Hospital Doctor . . "Provider Documentation" section prepared by Jeffery Tolliver. . . Additional Copies To Surjit Daly M.D.; Larry Bartlett PA-C
== END 2018-03-01 14:35 | disposition home or self-care (01) ==
LOC: C.EDB 19:42 → C.2T 21:38 → ENRESERV 21:46
PROVIDERS: ADMIT Hospitalist; ATTEND Hospitalist
DX: R07.9 Chest pain, unspecified (principal); I25.10 Atherosclerotic heart disease of native coronary artery without angina pectoris; E11.9 Type 2 diabetes mellitus without complications; E78.5 Hyperlipidemia, unspecified; I10 Essential (primary) hypertension; I25.2 Old myocardial infarction; Z79.82 Long term (current) use of aspirin; Z79.899 Other long term (current) drug therapy; Z79.4 Long term (current) use of insulin; Z79.84 Long term (current) use of oral hypoglycemic drugs; Z95.1 Presence of aortocoronary bypass graft; Z88.1 Allergy status to other antibiotic agents; Z82.49 Family history of ischemic heart disease and other diseases of the circulatory system

== ENCOUNTER 2019-07-29 18:50 | Observation (INO) ==
[2019-07-29 19:27] LABS: Basophils # (auto) 0.03 K/uL (0-0.2); Basophils % (auto) 0.4 %; Eosinophils # (auto) 0.12 K/uL (0-0.5); Eosinophils % (auto) 1.5 %; Hematocrit (blood only) 42.2 % (42-52); Hemoglobin 14.8 g/dL (14.0-18.0); Immature Granulocytes # (auto) 0.01 K/uL (0.00-0.02); Immature Granulocytes % (auto) 0.1 %; Lymphocytes # (auto) 1.96 K/uL (1.2-3.4); Lymphocytes % (auto) 24.6 %; Mean Corpuscular Hemoglobin 29.9 pg (25-34); Mean Corpuscular Hgb Conc 35.1 g/dL (32-36); Mean Corpuscular Volume 85.3 fL (80-100); Mean Platelet Volume 10.3 fL (7.4-10.4); Monocytes # (auto) 0.69 K/uL (0.11-0.59); Monocytes % (auto) 8.7 %; Neutrophils # (auto) 5.16 K/uL (1.4-6.5); Neutrophils % (auto) 64.7 %; Platelet Count 266 K/uL (130-400); RDW Coefficient of Variation 12.9 % (11.5-14.5); RDW Standard Deviation 39.9 fL (36.4-46.3); Red Blood Count 4.95 M/uL (4.7-6.1); White Blood Count 7.97 K/uL (4.8-10.8)
[2019-07-29 19:47] LABS: Alanine Aminotransferase 39 U/L (12-78); Albumin Level 3.4 gm/dl (3.4-5.0); Aspartate Aminotransferase 19 U/L (15-37); BUN Creatinine Ratio 13.3 (10-20); Blood Urea Nitrogen 13 mg/dl (7-18); Calcium 9.3 mg/dl (8.5-10.1); Carbon Dioxide 25 mmol/L (21-32); Chloride 103 mmol/L (98-107); Creatinine Clr Calc Pharmacy 100.5 ml/min; Est GFR (Non-African American) 88.9; Glucose 217 mg/dl (70-99); Lipase 83 U/L (73-393); Potassium 3.6 mmol/L (3.5-5.1); Sodium 135 mmol/L (136-145)
[2019-07-29 19:52] LABS: Albumin Globulin Ratio 0.8 (0.9-2); Alkaline Phosphatase 67 U/L (45-117); Bilirubin,Total 0.5 mg/dl (0.2-1); Globulin 4.3 gm/dl (2.5-4.0); Total Protein 7.7 gm/dl (6.4-8.2); Troponin I < 0.015 ng/ml (0-0.045)
[2019-07-29] MEDS ORDERED: KETOROLAC TROMETHAMINE 15 MG/ML VIAL IV STA (20:01)
[2019-07-29] MEDS ORDERED: ASPIRIN 81 MG CHEW PO STA (20:03)
--- NOTE | 2019-07-29 20:05 | XRay Report ---
XR chest 1V portable HISTORY: Atypical Chest Pain COMPARISON: Chest 05/10/2019. FINDINGS: The heart remains mildly enlarged. Poststernotomy changes. No pleural effusions. No pneumot horax. The lungs are clear. IMPRESSION: Stable mild cardiomegaly. No acute process within the chest. Electronically signed by: Harry Pollock M.D. 07/29/2019 8:04 PM
[2019-07-29] MEDS ORDERED: OPTIRAY 320 125ml IV PRN (21:00)
--- NOTE | 2019-07-29 21:11 | CT Scan Report ---
CHEST CTA for PULMONARY ARTERIES CT DOSE: 754.90 mGy.cm HISTORY: Atypical chest pain. Shortness of breath. Positive d-dimer. TECHNIQUE: Multiaxial CT images of the chest were performed following the intravenous administration of contrast to evaluate the pulmonary arteries. Maximal intensity projection images were also obtaine d. A dose lowering technique was utilized adhering to the principles of ALARA. COMPARISON STUDY: Chest CTA 06/10/2015. FINDINGS: Retrograde opacification of the hepatic veins. Otherwise, the visualized liver and spleen a re unremarkable. Normal caliber thoracic aorta with no evidence for dissection. The heart is mildly e nlarged. This remains unchanged. Small pericardial effusion has decreased in size. A trace left pleur al effusion has also significantly decreased in size. No filling defects within the pulmonary arterie s to suggest pulmonary embolus. There are poststernotomy changes. Normal esophagus. No mediastinal ly mphadenopathy. Prominent bilateral hilar lymph nodes are not significantly changed. No pneumothorax. Mild central bronchial wall thickening. Mosaic attenuation within the lungs suggestive of air-trappin g. Otherwise, no focal lung consolidations to suggest pneumonia. Small linear density within the righ t middle lobe consistent with subsegmental atelectasis. IMPRESSION: 1. No evidence for pulmonary embolus. 2. Mosaic attenuation within the lungs suggestive of air-trapping. This can be seen in the setting of small airways disease. 3. Prominent bilateral hilar lymph nodes, unchanged. 4. Decrease in size in the small pericardial effusion and trace left pleural effusion. Electronically signed by: Harry Pollock M.D. 07/29/2019 9:10 PM
[2019-07-29] MEDS ORDERED: KETOROLAC TROMETHAMINE 15 MG/ML VIAL IV PRN (22:38)
[2019-07-29] MEDS ORDERED: ACETAMINOPHEN 325 MG TAB PO PRN (22:38)
[2019-07-29] MEDS ORDERED: MoRPHine SULFATE 4 MG/ML 1 ML CARP\\VIAL IV PRN (22:38)
[2019-07-29] MEDS ORDERED: ONDANSETRON INJ 2 MG/ML 2 ML VIAL IV PRN (23:50)
[2019-07-29] MEDS ORDERED: LORazepam 0.5 MG TAB PO PRN (23:50)
[2019-07-29] MEDS ORDERED: GLUCAGON FOR INJ 1 MG VIAL SQ PRN (23:50)
[2019-07-29] MEDS ORDERED: GLUCOSE 10 TABS/TUBE PO PRN (23:50)
[2019-07-29] MEDS ORDERED: DEXTROSE 50% 50 ML SYRINGE IV PRN (23:50)
[2019-07-29] MEDS ORDERED: GLUCOSE 40% GEL 15 GM TUBE PO PRN (23:50)
[2019-07-29] MEDS ORDERED: CARBOHYDRATES FOR HYPOGLYCEMIA PO PRN (23:50)
[2019-07-29] MEDS ORDERED: NITROGLYCERIN SL 0.4 MG/TAB TAB SL PRN (23:50)
--- NOTE | 2019-07-30 00:25 | Emergency Department Note ---
Entered by Ling Vazquez acting as a scribe for History of Present Illness General Chief complaint: Chest Pain Stated complaint: CHEST PAIN, HURTS TO BREATHE Time Seen by Provider: 07/29/19 19:45 Source: patient History of Present Illness Onset (ago): day(s) 4 Location: chest (chest pain) Pain Consistency: + other (worsening) Maximum Pain Intensity: 6 Exacerbated By: + other (laying down, exertion, and deep breathing) Associated symptoms: + denies other symptoms (abdominal pain, a sore throat, a runny nose, leg swelling, and body aches), + cough, + shortness of breath and + other (palpitations); no fever/chills and no nausea/vomiting Treatments prior to arrival: none The patient is a 49 year old M who presents to the Emergency Room with complaints of worsening chest pain that started 4 days ago. The patient notes that his symptoms started with a cough. He states that the cough produces clear phlegm. He denies any blood in his cough. He notes that his current chest pain radiates to his back. He adds that his chest pain is worsened with laying down, with exertion, and deep breathing. He states that he is also currently experiencing shortness of breath and palpitations. He denies that he is curr ently experiencing abdominal pain, nausea, fevers, a sore throat, a runny nose, leg swelling, and body aches. He states that he has a history of bypass, heart attacks, and pericarditis. He adds that his last episode of pericarditis was in April. He notes that his Lisinopril was recently increased from 2.5mg a day to 5mg a day. He adds that he is taking all of his prescribed medications regularly. He denies taking any pain medications today. He denies a history of smoking, seasonal allergies, and any recent travel. Home Medications Home Medications Medication Instructions Recorded Confirmed Type Lantus U-100 Insulin 80 units SUBCUT HS 06/26/18 07/29/19 History aspirin 81 mg PO DAILY 06/26/18 07/29/19 History atorvastatin 40 mg PO DAILY 06/26/18 07/29/19 History carvedilol 37.5 mg PO BIDM 06/26/18 07/29/19 History famotidine 20 mg PO BID 06/26/18 07/29/19 History furosemide 40 mg PO DAILY PRN 06/26/18 07/29/19 History ibuprofen 400 mg PO TID PRN 06/26/18 07/29/19 History metformin 500 mg PO BID 06/26/18 07/29/19 History nitroglycerin [Nitrostat] 0.4 mg SUBLINGUAL DIRECTED PRN 06/26/18 07/29/19 History potassium chloride 10 meq PO DAILY PRN 06/26/18 07/29/19 History tramadol 50 mg PO Q8H PRN 06/26/18 07/29/19 History lorazepam [Ativan] 0.5 mg PO BID PRN 05/10/19 07/29/19 History lisinopril 5 mg tablet 5 mg PO DAILY #90 tab 07/14/19 07/29/19 Rx fluoxetine 20 mg tablet 20 mg PO DAILY #30 tab 07/26/19 07/29/19 Rx Allergies Allergy/AdvReac Type Severity Reaction Status Date / Time lansoprazole Allergy Intermediate SOB, Verified 06/30/19 16:37 FACIAL REDNESS omeprazole Allergy Intermediate SOB, Verified 06/30/19 16:37 FACIAL REDNESS Past Med/Surg History Social History Preferred Language: Welsh Communication Ability: Effective Financial Operations Clerk Required: No Beliefs That Will Affect Care: None Current Living Situation: Spouse and Family Other Information That Helps Us Care for You: No Feels Safe at Home: Yes Safety Concerns: Feels Safe At This Time Smoking Status: Never smoker Hx Alcohol Use: Yes Alcohol type: beer Hx Substance Use: No Review of Systems See HPI for pertinent positives & negatives. and A total of 10 systems reviewed and were otherwise negative Physical Exam Vital Signs Vital Signs - 24 hr 07/29/19 18:52 07/29/19 19:46 07/29/19 19:47 Temperature 36.6 C Temperature Source Oral Pulse Rate 85 Pulse Rate [Finger] 94 H Respiratory Rate 20 20 Respiratory Effort / Characteristics Non-Labored Spontaneous Respiratory Depth Normal Blood Pressure 124/81 Blood Pressure [Left Arm] 135/79 Blood Pressure Mean 95 Blood Pressure Mean [Left Arm] 97 Pulse Oximetry 98 96 96 Oxygen Delivery Method Room Air Room Air Room Air Sepsis Recent Fever Within 48 Hours No Sepsis New/Unexplained Change in Mental Status No Sepsis Action Taken by Nursing No Action Required 07/29/19 21:00 Temperature Temperature Source Pulse Rate Pulse Rate [Finger] 87 Respiratory Rate 20 Respiratory Effort / Characteristics Non-Labored Spontaneous Respiratory Depth Normal Blood Pressure Blood Pressure [Left Arm] 137/94 Blood Pressure Mean Blood Pressure Mean [Left Arm] 108 Pulse Oximetry 96 Oxygen Delivery Method Room Air Sepsis Recent Fever Within 48 Hours Sepsis New/Unexplained Change in Mental Status Sepsis Action Taken by Nursing GENERAL: Awake, alert, well-appearing, in no distress HENT: Normocephalic, atraumatic. EYES: Normal conjunctiva. Sclera non-icteric. RESPIRATORY: Clear to auscultation. No wheezes. Normal respiratory effort. CARDIAC: Normal rate. Normal rhythm. Extremities warm and well perfused. Chest pain worse lying flat GI: Soft, non-distended. No tenderness to palpation. No rebound or guarding. RECTAL: Deferred. MUSCULOSKELETAL: Atraumatic. Chest examination reveals no tenderness. LOWER EXTREMITIES: Calves are equal size bilaterally and non-tender. No edema NEURO: Normal sensorium. No sensory or motor deficits noted. No facial droop. SKIN: Warm and dry. No rash or jaundice noted. Course Course 1953: The patient was evaluated in room C9. A complete history and physical exam was performed. 2029: I re-checked the patient and updated him on his test results. 2128: I updated the patient and let him know that I would like him to be admitted. The patient is agreeable with this plan. 2142: I reviewed the patient's case with Dr. Martinez, [facility] Hospitalist. He will evaluate the patient for further management. Administered Medications Discontinued Medications Aspirin (Aspirin Chew) 243 mg PO NOW STA Stop: 07/29/19 20:04 Last Admin: 07/29/19 20:13 Dose: 243 mg Documented by: [id number] Ioversol (Optiray 320 125ml) 104 ml IV ONCE PRN PRN Reason: Interaction Checking Stop: 08/02/19 20:59 Last Admin: 07/29/19 21:00 Dose: 104 ml Documented by: [id number] Ketorolac Tromethamine (Toradol) 15 mg IV NOW STA Stop: 07/29/19 20:02 Last Admin: 07/29/19 20:14 Dose: 15 mg Documented by: [id number] Medical Decision Making Differential Diagnosis Differential diagnosis: Etiologies such as cardiac ischemia, aortic dissection, pulmonary embolism, pneumonia, pneumothorax, musculoskeletal, infections, pericarditis, myocarditis, esophageal rupture, gastrointestinal, as well as others were entertained. Medical Records Attestation: I reviewed the patient's medical records. Home Medications Current Medication List: was personally reviewed by me Laboratory Data Attestation: I reviewed the patient's lab results. Result diagrams: 07/29/19 19:05 07/29/19 19:05 Lab Results 07/29/19 07/29/19 07/29/19 Range/Units 19:05 19:05 20:10 WBC 7.97 (4.8-10.8) K/uL RBC 4.95 (4.7-6.1) M/uL Hgb 14.8 (14.0-18.0) g/dL Hct 42.2 (42-52) % MCV 85.3 (80-100) fL MCH 29.9 (25-34) pg MCHC 35.1 (32-36) g/dL RDW Std Deviation 39.9 (36.4-46.3) fL RDW Coeff of Jonh 12.9 (11.5-14.5) % Plt Count 266 (130-400) K/uL MPV 10.3 (7.4-10.4) fL Immature Gran % (Auto) 0.1 % Neut % (Auto) 64.7 % Lymph % (Auto) 24.6 % [place] % (Auto) 8.7 % Eos % (Auto) 1.5 % Baso % (Auto) 0.4 % Immature Gran # (Auto) 0.01 (0.00-0.02) K/uL Neut # (Auto) 5.16 (1.4-6.5) K/uL Lymph # (Auto) 1.96 (1.2-3.4) K/uL [place] # (Auto) 0.69 H (0.11-0.59) K/uL Eos # (Auto) 0.12 (0-0.5) K/uL Baso # (Auto) 0.03 (0-0.2) K/uL POC D-Dimer > 450 H* (0-450) ng/mlFEU Sodium 135 L (136-145) mmol/L Potassium 3.6 (3.5-5.1) mmol/L Chloride 103 (98-107) mmol/L Carbon Dioxide 25 (21-32) mmol/L Anion Gap 7.0 (3-11) BUN 13 (7-18) mg/dl Creatinine 0.98 (0.6-1.4) mg/dl Est Cr Clr Drug Dosing 100.5 ml/min Est GFR ( Amer) 103.0 Est GFR (Non-Af Amer) 88.9 BUN/Creatinine Ratio 13.3 (10-20) Glucose 217 H (70-99) mg/dl Calcium 9.3 (8.5-10.1) mg/dl Total Bilirubin 0.5 (0.2-1) mg/dl AST 19 (15-37) U/L ALT 39 (12-78) U/L Alkaline Phosphatase 67 (45-117) U/L Troponin I < 0.015 (0-0.045) ng/ml Total Protein 7.7 (6.4-8.2) gm/dl Albumin 3.4 (3.4-5.0) gm/dl Globulin 4.3 H (2.5-4.0) gm/dl Albumin/Globulin Ratio 0.8 L (0.9-2) Lipase 83 (73-393) U/L Imaging Data Radiologist's Impression: Radiology results as stated below per my review and the radiologist's interpretation: XR chest 1V portable HISTORY: Atypical Chest Pain COMPARISON: Chest 05/10/2019. FINDINGS: The heart remains mildly enlarged. Poststernotomy changes. No pleural effusions. No pneumothorax. The lungs are clear. IMPRESSION: Stable mild cardiomegaly. No acute process within the chest. Electronically signed by: Harry Pollock M.D. 07/29/2019 8:04 PM CHEST CTA for PULMONARY ARTERIES CT DOSE: 754.90 mGy.cm HISTORY: Atypical chest pain. Shortness of breath. Positive d-dimer. TECHNIQUE: Multiaxial CT images of the chest were performed following the intravenous administration of contrast to evaluate the pulmonary arteries. Maximal intensity projection images were also obtained. A dose lowering technique was utilized adhering to the principles of ALARA. COMPARISON STUDY: Chest CTA 06/10/2015. FINDINGS: Retrograde opacification of the hepatic veins. Otherwise, the visualized liver and spleen are unremarkable. Normal caliber thoracic aorta with no evidence for dissection. The heart is mildly enlarged. This remains unchanged. Small pericardial effusion has decreased in size. A trace left pleural effusion has also significantly decreased in size. No filling defects within the pulmonary arteries to suggest pulmonary embolus. There are poststernotomy changes. Normal esophagus. No mediastinal lymphadenopathy. Prominent bilateral hilar lymph nodes are not significantly changed. No pneumothorax. Mild central bronchial wall thickening. Mosaic attenuation within the lungs suggestive of air-trapping. Otherwise, no focal lung consolidations to suggest pneumonia. Small linear density within the right middle lobe consistent with subsegmental atelectasis. IMPRESSION: 1. No evidence for pulmonary embolus. 2. Mosaic attenuation within the lungs suggestive of air-trapping. This can be seen in the setting of small airways disease. 3. Prominent bilateral hilar lymph nodes, unchanged. 4. Decrease in size in the small pericardial effusion and trace left pleural effusion. Electronically signed by: Harry Pollock M.D. 07/29/2019 9:10 PM ECG Data Attestation: I personally reviewed and interpreted this ECG as follows: Indication: + chest pain Rate (beats per minute): 86 Rhythm: + sinus rhythm ECG Intervals/blocks: + Right Bundle branch block ECG ST segments: no ST elevation ECG Findings: + PVCs Comparison ECG Date: from (May 10, 2019) Change: the following changes noted (similar however now with PVCs) Blood Pressure Blood Pressure Findings: Elevated blood pressure Blood Pressure Disposition: further management by hospitalist NAHOMY Lynn Patient is a 49-year-old gentleman presenting to the emergency department today complaining of some chest pain and shortness of breath over the past several days its worsening. Cough with some clear sputum is reported. Not febrile or hypoxic upon arrival. Denies history of fever or trauma. Patient does report a history of diabetes, hypertension, CAD, CABG, V. fib arrest presenting today stating that he has some central chest pain rating through to his back. States feels a bit worse than when he has had pericarditis in the past. Is pleuritic. Does state some exertional component. Denies other radiation. Eating and drinking okay. Benign abdomen. Chest x-ray without acute findings here. No significant leukocytosis. No symptoms consistent with influenza or URI at this point. Positional in nature. Troponins negative. Do have some concerns about cardiac disease given his long history although could very easily just represent pericarditis. D-dimer sent to help include PE. Given initially some aspirin and Toradol here in the emergency department. D-dimer however was positive and CT of the chest was completed. Troponin here is negative and EKG shows more PVCs but no acute ischemic changes today. CT shows evidence of a decrease in pericardial effusion no evidence of pneumonia pneumothorax although there is some evidence of air trapping noted. Patient denies a tobacco use history. Discussed with the patient's options at this time. Believe his symptoms are predominantly more related to possible pericarditis however he has a significant cardiac history. Discussed with the patient and given his history elected for o bservation overnight to ensure no other cardiac abnormality. Heart score 4. Discussed with the hospitalist. Impression & Plan Chest pain Discharge Plan Visit Data *Final* Discharge Date/Time: 07/29/19 23:22 Chief Complaint: Chest Pain Stated Complaint: CHEST PAIN, HURTS TO BREATHE ED Provider: Nikhil Rascon Discharge Problem: Chest pain Patient Disposition: Admitted As Inpatient Discharge Instructions Interventions: ED Discharge Assessment Last Done: 07/29/19 23:22 Discharge Problem: Chest pain Qualifiers: Chest pain type: unspecified Qualified Code(s): R07.9 - Chest pain, unspecified The pradeepibe's documentation has been prepared under my direction and personally reviewed by me in its entirety. I confirm that the note above accurately reflects all work, treatment, procedures, and medical decision making performed by me.
[2019-07-30] MEDS ORDERED: INSULIN GLARGINE SOLOSTAR 100 UNITS/ML 3 ML PEN SC SCH (01:00)
--- NOTE | 2019-07-30 01:18 | History & Physical Report ---
Date of Service July 30, 2019 Assessment & Plan (1) Chest pain: Obs tele Serial trops Feels this is musculoskeletal intercostal muscle strain with or without pleurisy. Pain control. Toradol given in the ED helped with the pain. (2) CAD (coronary artery disease): Continue aspirin and carvedilol. I did not see any need for the prn Lasix at this time. (3) Diabetes mellitus, type 2: Continue Lantus 80 units HS Sliding scale coverage as I held metformin due to dye load. ADA diet (4) Dyslipidemia: Continue atorvastatin History of Present Illness 49 y/o male presented to the ED with a 4 day history of left sided chest pain and productive cough (clear phlegm). The chest pain radiates into his back, not to neck or left arm. Pain is worse with laying down, deep breath, cough, and exertion. No F/C, N/V/D, sore throat, lower ext edema, or palpitations. Primary Care Provider: Christina Vallecillo DO Allergies Allergy/AdvReac Type Severity Reaction Status Date / Time lansoprazole Allergy Intermediate SOB, Verified 06/30/19 16:37 FACIAL REDNESS omeprazole Allergy Intermediate SOB, Verified 06/30/19 16:37 FACIAL REDNESS Home Medications Home Medications Medication Instructions Recorded Confirmed Type Lantus U-100 Insulin 80 units SUBCUT HS 06/26/18 07/29/19 History aspirin 81 mg PO DAILY 06/26/18 07/29/19 History atorvastatin 40 mg PO DAILY 06/26/18 07/29/19 History carvedilol 37.5 mg PO BIDM 06/26/18 07/29/19 History famotidine 20 mg PO BID 06/26/18 07/29/19 History furosemide 40 mg PO DAILY PRN 06/26/18 07/29/19 History ibuprofen 400 mg PO TID PRN 06/26/18 07/29/19 History metformin 500 mg PO BID 06/26/18 07/29/19 History nitroglycerin [Nitrostat] 0.4 mg SUBLINGUAL DIRECTED PRN 06/26/18 07/29/19 History potassium chloride 10 meq PO DAILY PRN 06/26/18 07/29/19 History tramadol 50 mg PO Q8H PRN 06/26/18 07/29/19 History lorazepam [Ativan] 0.5 mg PO BID PRN 05/10/19 07/29/19 History lisinopril 5 mg tablet 5 mg PO DAILY #90 tab 07/14/19 07/29/19 Rx fluoxetine 20 mg tablet 20 mg PO DAILY #30 tab 07/26/19 07/29/19 Rx Past Med/Surg History Medical History Anxiety (Chronic) CAD (coronary artery disease) (Chronic) 2009-anterior MD with ventricular arrest, S/P stenting to the LAD 2014-CABG x4 Diabetes mellitus, type 2 (Chronic) DVT prophylaxis Dyslipidemia (Chronic) GERD (gastroesophageal reflux disease) (Chronic) Hypertension (Chronic) Palpitations Pericarditis Surgical History Status post coronary artery bypass grafting (Chronic) "2014 CABG: BULLOCK-LAD, SVG-RCA, SVG-diagonal, JEFFRY-obtuse marginal" Status post coronary artery stent placement (Chronic) "2009 PCI LAD" Traumatic amputation of left leg (Chronic) Family History Father Coronary heart disease Myocardial infarction Mother Coronary heart disease Myocardial infarction Grandmother (Paternal) Myocardial infarction Social History Preferred Language: French Communication Ability: Effective Gardener Florist Required: No Beliefs That Will Affect Care: None Current Living Situation: Spouse and Family Other Information That Helps Us Care for You: No Feels Safe at Home: Yes Safety Concerns: Feels Safe At This Time Smoking Status: Never smoker Hx Alcohol Use: Yes Alcohol type: beer Hx Substance Use: No Review of Systems Review of Systems: All systems reviewed & are unremarkable except as noted in HPI & below Physical Exam Physical Exam: General- adult male, NAD Head- atraumatic Eyes- PERRL, EOMI, anicteric ENT- oropharynx clear Neck- supple, no JVD, no adenopathy, no thyromegaly. Lungs- CTA b/l no R/R/W. Heart- regular rhythm; no murmur, no gallop, no rub appreciated. Reproducible chest pain over left mid rib cage. Abdomen- normal bowel sounds, soft, nontender. Extremities- Right no pretibial edema, no calf tenderness; peripheral pulses intact, L amputation with prosthesis. Neuro- alert, oriented x 3; PERRL, EOMI; mortgage loan specialist II-XII grossly intact, non-focal. Skin- warm & dry, no rashes. Results & Data Vital Signs (Past 12 Hours) Vital Signs Temp Pulse Pulse Resp BP BP Pulse Ox 07/29/19 23:58 36.6 C 86 18 131/86 98 07/29/19 22:39 81 16 122/86 95 07/29/19 21:00 87 20 137/94 96 07/29/19 19:47 96 07/29/19 19:46 94 H 20 135/79 96 07/29/19 18:52 36.6 C 85 20 124/81 98 Laboratory Results Laboratory Results WBC 7.97 K/uL (4.8-10.8) 07/29/19 19:05 RBC 4.95 M/uL (4.7-6.1) 07/29/19 19:05 Hgb 14.8 g/dL (14.0-18.0) 07/29/19 19:05 Hct 42.2 % (42-52) 07/29/19 19:05 MCV 85.3 fL (80-100) 07/29/19 19:05 MCH 29.9 pg (25-34) 07/29/19 19:05 MCHC 35.1 g/dL (32-36) 07/29/19 19:05 RDW Std Deviation 39.9 fL (36.4-46.3) 07/29/19 19:05 RDW Coeff of Jonh 12.9 % (11.5-14.5) 07/29/19 19:05 Plt Count 266 K/uL (130-400) 07/29/19 19:05 MPV 10.3 fL (7.4-10.4) 07/29/19 19:05 Immature Gran % (Auto) 0.1 % 07/29/19 19:05 Neut % (Auto) 64.7 % 07/29/19 19:05 Lymph % (Auto) 24.6 % 07/29/19 19:05 Payette % (Auto) 8.7 % 07/29/19 19:05 Eos % (Auto) 1.5 % 07/29/19 19:05 Baso % (Auto) 0.4 % 07/29/19 19:05 Immature Gran # (Auto) 0.01 K/uL (0.00-0.02) 07/29/19 19:05 Neut # (Auto) 5.16 K/uL (1.4-6.5) 07/29/19 19:05 Lymph # (Auto) 1.96 K/uL (1.2-3.4) 07/29/19 19:05 Payette # (Auto) 0.69 K/uL (0.11-0.59) H 07/29/19 19:05 Eos # (Auto) 0.12 K/uL (0-0.5) 07/29/19 19:05 Baso # (Auto) 0.03 K/uL (0-0.2) 07/29/19 19:05 POC D-Dimer > 450 ng/mlFEU (0-450) H* 07/29/19 20:10 Sodium 135 mmol/L (136-145) L 07/29/19 19:05 Potassium 3.6 mmol/L (3.5-5.1) 07/29/19 19:05 Chloride 103 mmol/L (98-107) 07/29/19 19:05 Carbon Dioxide 25 mmol/L (21-32) 07/29/19 19:05 Anion Gap 7.0 (3-11) 07/29/19 19:05 BUN 13 mg/dl (7-18) 07/29/19 19:05 Creatinine 0.98 mg/dl (0.6-1.4) 07/29/19 19:05 Est Cr Clr Drug Dosing 100.5 ml/min 07/29/19 19:05 Est GFR ( Amer) 103.0 07/29/19 19:05 Est GFR (Non-Af Amer) 88.9 07/29/19 19:05 BUN/Creatinine Ratio 13.3 (10-20) 07/29/19 19:05 Glucose 217 mg/dl (70-99) H 07/29/19 19:05 Calcium 9.3 mg/dl (8.5-10.1) 07/29/19 19:05 Total Bilirubin 0.5 mg/dl (0.2-1) 07/29/19 19:05 AST 19 U/L (15-37) 07/29/19 19:05 ALT 39 U/L (12-78) 07/29/19 19:05 Alkaline Phosphatase 67 U/L (45-117) 07/29/19 19:05 Troponin I < 0.015 ng/ml (0-0.045) 07/29/19 19:05 Total Protein 7.7 gm/dl (6.4-8.2) 07/29/19 19:05 Albumin 3.4 gm/dl (3.4-5.0) 07/29/19 19:05 Globulin 4.3 gm/dl (2.5-4.0) H 07/29/19 19:05 Albumin/Globulin Ratio 0.8 (0.9-2) L 07/29/19 19:05 Lipase 83 U/L (73-393) 07/29/19 19:05 Diagnostic Findings [place], [place] [phone] CT Scan Report Patient: KRISTEL SHRESTHA Date: 07/29/19 MR#: [id number]: [address] [facility] Acct ID:[id number]: Date: 1970[facility] Zip: [place] [id number] Age: 49Location: ED Sex: M Room/Bed: Att Phy:Diagnosis: CHEST PAIN, HURTS TO BREATHE Neha Phy: Christina Vallecillo, DOService Date: 07/29/19 Fam Phy: Christina Vallecillo, DOInterpreting Phy: Harry Pollock MD Admit Phy: Ordering Phy: Nikhil Rascon M.D. cc: ~ CHEST CTA for PULMONARY ARTERIES CT DOSE: 754.90 mGy.cm HISTORY: Atypical chest pain. Shortness of breath. Positive d-dimer. TECHNIQUE: Multiaxial CT images of the chest were performed following the intravenous administration of contrast to evaluate the pulmonary arteries. Maximal intensity projection images were also obtained. A dose lowering technique was utilized adhering to the principles of ALARA. COMPARISON STUDY: Chest CTA 06/10/2015. FINDINGS: Retrograde opacification of the hepatic veins. Otherwise, the visualized liver and spleen are unremarkable. Normal caliber thoracic aorta with no evidence for dissection. The heart is mildly enlarged. This remains unchanged. Small pericardial effusion has decreased in size. A trace left pleural effusion has also significantly decreased in size. No filling defects within the pulmonary arteries to suggest pulmonary embolus. There are poststernotomy changes. Normal esophagus. No mediastinal lymphadenopathy. Prominent bilateral hilar lymph nodes are not significantly changed. No pneumothorax. Mild central bronchial wall thickening. Mosaic attenuation within the lungs suggestive of air-trapping. Otherwise, no focal lung consolidations to suggest pneumonia. Small linear density within the right middle lobe consistent with subsegmental atelectasis. IMPRESSION: 1. No evidence for pulmonary embolus. 2. Mosaic attenuation within the lungs suggestive of air-trapping. This can be seen in the setting of small airways disease. 3. Prominent bilateral hilar lymph nodes, unchanged. 4. Decrease in size in the small pericardial effusion and trace left pleural effusion. Electronically signed by: Harry Pollock M.D. 07/29/2019 9:10 PM Dictated: 07/29/192100 Transcribed: 07/29/192100 Code Status & VTE Plan VTE Prophylaxis Plan VTE Prophylaxis will be ordered: Yes PG Care Time/CCT Total # of Minutes Spent Total Time Spent: 60 Total Time Spent with Patient: Total time spent is greater than 50% in coordination of care (as documented) at patient's floor/unit and/or counseling patient: (1) Chest pain Chest pain type: unspecified Qualified Code(s): R07.9 - Chest pain, unspecified
[2019-07-30] MEDS: INSULIN ASPART 100 UNITS/ML 3 ML PEN SC SCH ×2 (01:23→07:56)
[2019-07-30] MEDS: FAMOTIDINE 20 MG TAB PO SCH ×2 (01:29→07:58)
[2019-07-30 01:34] LABS: Hematocrit (blood only) 42.3 % (42-52); Hemoglobin 14.7 g/dL (14.0-18.0); Mean Corpuscular Hemoglobin 29.8 pg (25-34); Mean Corpuscular Hgb Conc 34.8 g/dL (32-36); Mean Corpuscular Volume 85.8 fL (80-100); Platelet Count 276 K/uL (130-400); RDW Coefficient of Variation 12.9 % (11.5-14.5); RDW Standard Deviation 40.9 fL (36.4-46.3); Red Blood Count 4.93 M/uL (4.7-6.1)
[2019-07-30 01:55] LABS: Potassium 3.6 mmol/L (3.5-5.1)
[2019-07-30 01:56] LABS: BUN Creatinine Ratio 12.7 (10-20); Calcium 9.2 mg/dl (8.5-10.1); Creatinine Clr Calc Pharmacy 98.9 ml/min; Est GFR (African American) 101.8; Est GFR (Non-African American) 87.8
[2019-07-30] MEDS ORDERED: carvediloL 25 MG TAB PO SCH (08:00)
[2019-07-30] MEDS ORDERED: ENOXAPARIN INJ 40 MG/0.4 ML SYR SQ SCH (08:00)
[2019-07-30] MEDS ORDERED: Nursing to Pharmacy Communication ONE (08:14)
--- NOTE | 2019-07-30 08:33 | Discharge Summary ---
Date of Service July 30, 2019 Admission HPI Per Admitting Provider 49 y/o male presented to the ED with a 4 day history of left sided chest pain and productive cough (clear phlegm). The chest pain radiates into his back, not to neck or left arm. Pain is worse with laying down, deep breath, cough, and exertion. No F/C, N/V/D, sore throat, lower ext edema, or palpitations. Principal Diagnosis Chest pain, musculoskeletal Discharge Exam Constitutional WD/WN, vitals as above Eyes PERRL, conjunctivae normal, anicteric sclerae ENMT external ear and nose normal, oropharynx normal Neck trachea midline, no thyromegaly Respiratory normal respiratory effort, lungs clear to auscultation Cardiovascular RRR, no murmur, no edema Gastrointestinal (Abdomen) normal bowel sounds, soft, nontender, no hepatosplenomegaly Musculoskeletal no cyanosis or clubbing, extremities motor strength 5/5 Skin no rashes, warm and dry Neurologic patellar DTR's 2+ bilat, sensation intact and PERRL, EOMI, accommodation nl, no face palsy, no dysarthria Psychiatric A+Ox3, euthymic affect Lymphatic no cervical or axillary lymphadenopathy Discharge Data Allergies Allergy/AdvReac Type Severity Reaction Status Date / Time lansoprazole Allergy Intermediate SOB, Verified 06/30/19 16:37 FACIAL REDNESS omeprazole Allergy Intermediate SOB, Verified 06/30/19 16:37 FACIAL REDNESS Consultations 07/29/19 21:30 ED Decision to Admit Stat Ordered Studies 07/29/19 20:38 CT angio chest PE protocol Stat Hospital Course (1) Chest pain: Obs tele troponin negative x 3 sets he actually has a cardiac stress test recently as outpatient with Dr. Daly, no need to repeat CT angiogram of the chest negative for PE and no signs of pneumonia has an ongoing history of pericarditis, has been on NSAIDs and Prednisone before he cannot tolerate Colchicine due to GI side effects could be chronic pericarditis vs musculoskeletal pain (although the pain is not reproducible) no reason to remain in the hospital, vitals stable and pain is only with deep breath will treat with Ibuprofen 600mg q6 with food, instructed to follow up with PCP in a week if pain not better (2) CAD (coronary artery disease): Continue aspirin and carvedilol. as above, had a recent stress echo with Dr. Daly that was negative for ischemia (3) Diabetes mellitus, type 2: Continue Lantus 80 units HS Sliding scale coverage resume Metformin on d/c (4) Dyslipidemia: Continue atorvastatin Total Time Total Time Spent Total Time Spent (In Minutes): 25 minutes Total Time Includes: Examination of the Patient, Discharge Planning and Medication Reconciliation Discharge Plan Discharge Items Patient Disposition: Home - Self-Care Reason For Visit: CHEST PAIN Discharge Diagnosis: Pleuritic chest pain, likely musculoskeletal vs pericarditis Condition on Discharge: Good Goals: treat chest pain with Ibuprofen Activity: Resume your previous activity Lifting: None Bathing: No limitations Sexual Activity: When tolerated Exercise/Sports: None Driving/Machine Use: No limitations Weightbearing: Full weightbearing Non-emergency contact: Primary Care Provider Call non-emergency contact if: you have any medication questions, your symptoms worsen, your pain is not controlled and your pain is worsening Follow-up/Referrals: Christina Vallecillo DO [Primary Care Provider] - Diet: Carb Consistent or DM2 and Heart Healthy Addtl Attending Provider Instructions: Medications: - IBUPROFEN: recommend using either 800mg every 8 hours or 600mg every 4 hours for the next 7-10 days, take with food max dose a day is 2400mg Chest pain, pleuritic pain CT angiogram of the chest negative for pulmonary embolism, pneumonia heart enzymes negative x 3 sets ruling out acute coronary event plus, you just had a negative stress test with Dr. Daly as outpatient, no need to repeat pain most likely either musculoskeletal or mild recurrent pericarditis treatment will be ibuprofen as before, ideally you would be on colchicine but you cannot tolerate this medication recommend follow up with Dr. Vallecillo's office in 7-10 days if the pain gets worse or does not go away Pending Studies at Discharge: No Stand-Alone Forms: Call Back Authorization, Chemayi, Smoking Cessation Medications and DC Order Prescriptions: Continued lisinopril 5 mg tablet 5 mg PO DAILY Qty: 90 RF: 3 fluoxetine 20 mg tablet 20 mg PO DAILY Qty: 30 RF: 5 lorazepam [Ativan] 0.5 mg Tablet 0.5 mg PO BID PRN (Reason: Anxiety) RF: 0 furosemide 40 mg Tablet 40 mg PO DAILY PRN (Reason: Fluid Retention/SOB) RF: 0 atorvastatin 40 mg Tablet 40 mg PO DAILY RF: 0 metformin 500 mg Tablet 500 mg PO BID RF: 0 carvedilol 25 mg Tablet 37.5 mg PO BIDM RF: 0 Lantus U-100 Insulin 100 unit/mL Solution 80 units subcut HS RF: 0 potassium chloride 10 mEq Tablet Extended Release 10 meq PO DAILY PRN (Reason: Take if Lasix Was Taken) RF: 0 aspirin 81 mg Tablet,Delayed Release (Dr/Ec) 81 mg PO DAILY RF: 0 tramadol 50 mg Tablet 50 mg PO Q8H PRN (Reason: Pain) RF: 0 famotidine 20 mg Tablet 20 mg PO BID RF: 0 ibuprofen 400 mg Tablet 400 mg PO TID PRN (Reason: Pain) RF: 0 nitroglycerin [Nitrostat] 0.4 mg Tablet, Sublingual 0.4 mg Sublingual DIRECTED PRN (Reason: Chest Pain) RF: 0 Discharge Orders: Discharge Order (Routine); Ordered 07/30/19 Ordered By: Wilson Sepulveda Admission Data Admit Date/Time: 07/29/19 22:38 Attending Provider: Wilson Sepulveda Admit Provider: Anibal Martinez Primary Care Provider: Christina Vallecillo Other Providers: Anibal Martinez
[2019-07-30] MEDS ORDERED: FLUOXETINE HCL 20 MG CAP PO SCH (09:00)
[2019-07-30] MEDS ORDERED: lisinopriL 5 MG TAB PO SCH ×2 (09:00→21:00)
[2019-07-30] MEDS ORDERED: ASPIRIN 81 MG ECTAB PO SCH (09:00)
[2019-07-30] MEDS ORDERED: ATORVASTATIN 40 MG TAB PO SCH (09:00)
[2019-07-30] MEDS ORDERED: LANTUS PER UNIT CHARGE SQ SCH (21:00)
== END 2019-07-30 11:04 | disposition home or self-care (01) ==
LOC: 2E 18:50 → ED 18:50 → SUATTDRO 22:38 → 2E 23:22